=== PATIENT | female | born 1995 | race American Indian/Alaskan Native ===

== ENCOUNTER 2016-03-19 21:58 | Emergency (ER) | payer SELFPAY ==
[2016-03-19 22:05] VITALS: BP 124/78
== END 2016-03-19 22:03 | disposition left against medical advice (07) ==
LOC: ED 21:58
DX: R06.09 Other forms of dyspnea (principal); Z53.21 Procedure and treatment not carried out due to patient leaving prior to being seen by health care provider

== ENCOUNTER 2016-06-27 00:16 | Emergency (ER) | payer SELFPAY ==
--- NOTE | 2016-06-27 08:15 | Emergency Department Report ---
HPI - General Chief Complaint: Sore Throat Time Seen by Provider: 06/27/16 08:14 - HPI HPI: Patient was called back after she left without being seen this morning. She was triage and strep was done and strep test came back positive. No scleral patient back for treatment. She reported that her throat started hurting yesterday and she is having pain at 5 out of 10 with swallowing at present. She says she's having chills but denies any fever. She said it's difficult for her to swallow due to pain and denies any drooling. Denies any nausea or vomiting. Denies any cough, congestion or shortness of breath. Denies any chest pain. ED Past Medical Hx - Past Medical History Previous Medical History?: Yes Hx Hypertension: No Hx Liver Disease: No Hx Renal Disease: No Hx Headaches / Migraines: Yes (migraines) Hx Seizures: No Hx Asthma: Yes (last treated 04/2014, SE[facility]ON[facility]) Hx HIV: No - Surgical History Past Surgical History?: Yes Additional Surgical History: RIGHT OOPHERECTOMY - Family History Family history: hypertension - Social History Smoking Status: Current Every Day Smoker Substance Use Type: None - Medications Home Medications: Home Medications Medication Instructions Recorded Confirmed Last Taken Type Clindamycin [Clindamycin CAP] 300 mg PO Q8H #30 cap 06/27/16 Unknown Rx Ibuprofen [Motrin] 600 mg PO Q8H PRN #15 tablet 06/27/16 Unknown Rx ED Review of Systems ROS: Stated complaint: SORE THROAT Other details as noted in HPI Comment: All other systems reviewed and negative Constitutional: chills. denies: fever Eyes: denies: eye pain ENT: throat pain. denies: ear pain, congestion Respiratory: no symptoms reported Cardiovascular: denies: chest pain, palpitations, edema, syncope Gastrointestinal: denies: abdominal pain, nausea, vomiting Musculoskeletal: denies: back pain, arthralgia Skin: denies: rash Neurological: denies: headache, weakness, numbness, paresthesias, confusion, abnormal gait, vertigo Physical Exam - Physical Exam Vital Signs: Vital Signs 06/27/16 00:23 Temperature 98.3 F Pulse Rate 80 Respiratory 18 Rate Blood Pressure 115/68 O2 Sat by Pulse 100 Oximetry General: This is a 20-year-old female well-nourished well-developed in no acute distress. Physical Exam: Head: Normocephalic atraumatic Mouth: Moist, positive pharyngeal exudate / erythema. Uvula is midline and oral airway is patent. No gingival enlargement or dental tenderness. No facial swelling. No peritonsillar abscesses. no drooling Neck: Supple, no C-spine tenderness, no tracheal deviation. Nontender to palpate. Positive adenopathy Ears: Bilateral TMs Pearly brady .bilateral EAC without any redness swelling or drainage Eyes: Bilateral pupils equal and reactive to light, bilateral EOM intact. Bilateral sclera and conjunctiva without injection. Normal accommodation Nose: Mucosa moist, NL maxillary and frontal sinus non-tender to palpate. Lungs: Clear to auscultate bilaterally no rhonchi wheezes or rales. Normal work of breathing extremity; No CCE. +2 pulses. No neurovascular compromise Cardiovascular: S1-S2, regular rate rhythm. No murmurs. Skin: clean Dry and intact no rash no lesions Psych: Normal mood and behavior ED Course Vital Signs 06/27/16 00:23 Temperature 98.3 F Pulse Rate 80 Respiratory 18 Rate Blood Pressure 115/68 O2 Sat by Pulse 100 Oximetry Vital Signs 06/27/16 06/27/16 00:23 08:20 Temperature 98.3 F 98.5 F Pulse Rate 80 98 H Respiratory 18 18 Rate Blood Pressure 115/68 Blood Pressure 109/70 [Left] O2 Sat by Pulse 100 99 Oximetry - Reevaluation(s) Reevaluation #1: 06/27/16 08:21 Patient return back for treatment she cannot get Bicillin because she is allergic to penicillin. She is stable. ED Medical Decision Making - Lab Data Strep test positive. - Medical Decision Making ED course: Discussed with patient that her strep test positive. Vital signs are stable. The left at 3:50 AM this morning after being triage and was called back in because her strep test is positive. I asked the patient diagnosis and treatment plan and she is in agreement. Condition discharged home with prescription for clindamycin and Motrin. Critical care attestation.: If time is entered above; I have spent that time in minutes in the direct care of this critically ill patient, excluding procedure time. ED Disposition Clinical Impression: Strep throat Pharyngitis Qualifiers: Pharyngitis/tonsillitis etiology: streptococcus Qualified Code(s): J02.0 - Streptococcal pharyngitis Disposition: DISCHARGED TO HOME OR SELFCARE Is pt being admited?: No Does the pt Need Aspirin: No Condition: Stable Instructions: Strep Throat (ED) Additional Instructions: please plenty of fluid. Take antibiotic as prescribed Prescriptions: Clindamycin [Clindamycin CAP] 300 mg PO Q8H #30 cap Ibuprofen [Motrin] 600 mg PO Q8H PRN #15 tablet PRN Reason: Pain Referrals: PRIMARY CARE, [Primary Care Provider] - 2-3 Days [facility] [Outside] - 3-5 Days Forms: Work/School Release Form(ED)
[2016-06-27 08:22] VITALS: BP 109/70
== END 2016-06-27 08:31 | disposition home or self-care (01) ==
LOC: ED 00:16
DX: J02.0 Streptococcal pharyngitis (principal); G40.909 Epilepsy, unspecified, not intractable, without status epilepticus; J45.909 Unspecified asthma, uncomplicated; F17.200 Nicotine dependence, unspecified, uncomplicated; Z90.721 Acquired absence of ovaries, unilateral
CPT/HCPCS: 87430; 99282

== ENCOUNTER 2016-10-02 00:11 | Emergency (ER) | payer SELFPAY | END 2016-10-02 01:39 | disposition left against medical advice (07) | LOC: ED 00:11 | DX: M79.646 Pain in unspecified finger(s) (principal); Z53.21 Procedure and treatment not carried out due to patient leaving prior to being seen by health care provider ==

== ENCOUNTER 2016-10-02 23:20 | Emergency (ER) | payer SELFPAY ==
[2016-10-03 00:52] VITALS: BP 114/72
--- NOTE | 2016-10-03 03:28 | Emergency Department Report ---
Upper Extremity - HPI Chief Complaint: Extremity Injury, Upper Stated Complaint: GROWTH ON RIGHT HAND PINKY/PAINFUL Time Seen by Provider: 10/03/16 02:58 Upper Extremity: Right Little Finger (wart with surrounding paronychia right distal pinky finger near nail edge) Symptoms: Yes Deformity (visible wart like lesion to distal pinky finger on right hand on superior aspect of nail edge), Yes Swelling (paronychia next 2 nail), No Pain with Movement, No Limited Range of Movement, No Numbness, No Weakness, No Bruising/Ecchymosis, No Laceration or Abrasion Other History: 20-year-old female past medical history hand warts presents with complaint of 2-3 days of pain to distal right pinky. Patient states she has noticed some swelling adjacent to a wart she had on this pinky. tender to touch and visible swelling to area immediately adjacent to the nail edge. States she saw some mild purulent drainage ED Review of Systems ROS: Stated complaint: GROWTH ON RIGHT HAND PINKY/PAINFUL Other details as noted in HPI Constitutional: denies: chills, fever Eyes: denies: eye pain, eye discharge, vision change ENT: denies: ear pain, throat pain Respiratory: denies: cough, shortness of breath, wheezing Cardiovascular: denies: chest pain, palpitations Endocrine: no symptoms reported Gastrointestinal: denies: abdominal pain, nausea, diarrhea Genitourinary: denies: urgency, dysuria, discharge Musculoskeletal: denies: back pain, joint swelling, arthralgia Skin: as per HPI (wart on fingers). denies: rash, lesions Neurological: denies: headache, weakness, paresthesias Psychiatric: denies: anxiety, depression Hematological/Lymphatic: denies: easy bleeding, easy bruising ED Past Medical Hx - Past Medical History Previous Medical History?: Yes Hx Hypertension: No Hx Liver Disease: No Hx Renal Disease: No Hx Headaches / Migraines: Yes (migraines) Hx Seizures: No Hx Asthma: Yes (last treated 04/2014, SE[facility]ON[facility]) Hx HIV: No - Surgical History Past Surgical History?: Yes Additional Surgical History: RIGHT OOPHERECTOMY - Social History Smoking Status: Current Every Day Smoker Substance Use Type: None - Medications Home Medications: Home Medications Medication Instructions Recorded Confirmed Last Taken Type Clindamycin [Clindamycin CAP] 300 mg PO Q8H #30 cap 06/27/16 Unknown Rx Ibuprofen [Motrin] 600 mg PO Q8H PRN #15 tablet 06/27/16 Unknown Rx Ibuprofen [Motrin] 800 mg PO Q8HR PRN #25 tablet 10/03/16 Unknown Rx Neomycn/Baci Zn/Pmyx Bs/Pramox 28 gm TP BID #1 oint...g. 10/03/16 Unknown Rx [Triple Antibioti-Pain Rlf Oint] Sulfamethoxazole/Trimethoprim 1 each PO BID #14 tablet 10/03/16 Unknown Rx [Bactrim DS TAB] Upper Extremity Exam - Exam General: Vital signs noted. No distress. Alert and acting appropriately. Head and Torso: No HEENT Abnormality, No Neck Tenderness, No Chest/Lungs Abnormality, No Abdominal Tenderness, No Back Tenderness Shoulder Exam: Yes Normal Range of Motion in Shoulder, No Shoulder Tenderness, No Clavicle Tenderness, No Shoulder Deformity, No AC Joint Tenderness Arm Exam: No Arm/Humerus Tenderness, No Arm Deformity Elbow: No Elbow Tenderness, No Normal Range of Motion in Elbow, No Elbow Deformity Forearm: No Forearm Tenderness, No Forearm Deformity, No Pain with Pronation, No Pain with Supination Wrist: Yes Normal ROM in Wrist, No Wrist Tenderness, No Wrist Deformity, No Snuffbox Tenderness, No Pain with Axial Thumb Compression Hand: Yes Digit Tenderness (tenderness to paronychia area right distal pinky), Yes Normal ROM in Digit(s), No Hand Tenderness, No Hand Deformity, No Digit(s) Deformity, No Tendon Dysfunction CMS Exam: Yes Normal Distal Pulses (distal pulses intact), Yes Normal Capillary Refill (distal sensation and distal capillary refill intact), No Broken Skin, No Normal Distal Sensation Hand L/R Back: 1 - Wart with surrounding paronychia here ED Course Vital Signs 10/02/16 23:30 Temperature 98.9 F Pulse Rate 88 Respiratory 18 Rate Blood Pressure 114/72 [Right] O2 Sat by Pulse 99 Oximetry - I & D Right Distal Finger Type of Procedure: Simple Site: right distal pinky finger nail edge Blade Size: 11 I & D Procedure: betadine prep Progress: Single stab incision made, tiny amount of purulent drainage, procedure tolerated well wrapped with gauze after ED Medical Decision Making - Medical Decision Making A/P: Paronychia right distal pinky finger 1-incised, small amount of purulent drainage. Patient should follow-up with leather worker to have wart excised 2-we'll give patient a short course of Bactrim. Motrin 800 when necessary 3-patient referred to dermatology. Critical care attestation.: If time is entered above; I have spent that time in minutes in the direct care of this critically ill patient, excluding procedure time. ED Disposition Clinical Impression: Paronychia Qualifiers: Laterality: right Qualified Code(s): L03.011 - Cellulitis of right finger Disposition: TO HOME OR SELFCARE Is pt being admited?: No Does the pt Need Aspirin: No Condition: Stable Instructions: Paronychia (ED) Prescriptions: Ibuprofen [Motrin] 800 mg PO Q8HR PRN #25 tablet PRN Reason: Pain Neomycn/Baci Zn/Pmyx Bs/Pramox [Triple Antibioti-Pain Rlf Oint] 28 gm TP BID #1 oint...g. Sulfamethoxazole/Trimethoprim [Bactrim DS TAB] 1 each PO BID #14 tablet Referrals: [facility] [Provider Group] - 3-5 Days Forms: Accompanied Note, Work/School Release Form(ED) Time of Disposition: 04:33
[2016-10-03] MEDS ORDERED: MOTRIN PO ONE (04:14)
== END 2016-10-03 04:20 | disposition home or self-care (01) ==
LOC: ED 23:20
DX: L03.011 Cellulitis of right finger (principal); G43.909 Migraine, unspecified, not intractable, without status migrainosus; J45.909 Unspecified asthma, uncomplicated; F17.200 Nicotine dependence, unspecified, uncomplicated; Z88.0 Allergy status to penicillin; Z88.1 Allergy status to other antibiotic agents

== ENCOUNTER 2016-10-22 22:52 | Emergency (ER) | payer OTHER ==
[2016-10-22 23:32] VITALS: BP 102/67
== END 2016-10-23 06:06 | disposition left against medical advice (07) ==
LOC: ED 22:52
DX: M79.601 Pain in right arm (principal); J45.909 Unspecified asthma, uncomplicated; G43.909 Migraine, unspecified, not intractable, without status migrainosus; Z88.0 Allergy status to penicillin; Z88.1 Allergy status to other antibiotic agents; W22.8XXA Striking against or struck by other objects, initial encounter; Y93.89 Activity, other specified; Y99.9 Unspecified external cause status; Y92.89 Other specified places as the place of occurrence of the external cause; Z53.21 Procedure and treatment not carried out due to patient leaving prior to being seen by health care provider

== ENCOUNTER 2017-06-11 18:02 | Emergency (ER) | payer SELFPAY ==
[2017-06-11] MEDS ORDERED: ZOFRAN ODT PO ONE (19:48)
[2017-06-11] MEDS ORDERED: PEPCID PO ONE (19:49)
--- NOTE | 2017-06-11 19:52 | Emergency Department Report ---
ED N/V/D HPI - General Chief complaint: Nausea/Vomiting/Diarrhea Stated complaint: FLU LIKE SYMPTOMS Time Seen by Provider: 06/11/17 19:38 Source: patient Mode of arrival: Ambulatory Limitations: No Limitations - History of Present Illness Initial comments: 20-year-old -[place] female comes in for complaint of nausea vomiting diarrhea onset last night. Patient reports approximate 4 AM she started having abdominal pain since vomited about 4 times last time was about 1 PM today. She' s had multiple episodes of diarrhea. She reports that she has shortness of breathing and chest pain and feels fullness at the top of her stomach. Patient reports she has been able to eat ice chips with no issues at this time. Patient is 1 para 1. Last menstrual cycle was 06/03/2017. Past medical history of asthma as well as a right ovary removed due to history of ovarian cysts. Patient has allergy to penicillins. Currently taking no medications. MD complaint: nausea, vomiting -: Last night Description of Vomiting: watery Description of Diarrhea: water Associated Abdominal Pain: Yes Location: epigastric Radiation: none Severity: moderate Quality: aching Consistency: intermittent Improves with: rest Worsens with: eating Associated Symptoms: nausea/vomiting. denies: cough, fever/chills, dysuria - Related Data Previous Rx's Medication Instructions Recorded Last Taken Type Clindamycin [Clindamycin CAP] 300 mg PO Q8H #30 cap 06/27/16 Unknown Rx Ibuprofen [Motrin] 600 mg PO Q8H PRN #15 tablet 06/27/16 Unknown Rx Ibuprofen [Motrin] 800 mg PO Q8HR PRN #25 tablet 10/03/16 Unknown Rx Neomycn/Bacitrc/Polymyx/Pramox 28 gm TP BID #1 oint...g. 10/03/16 Unknown Rx [Triple Antibioti-Pain Rlf Oint] Sulfamethoxazole/Trimethoprim 1 each PO BID #14 tablet 10/03/16 Unknown Rx [Bactrim DS TAB] Allergies Allergy/AdvReac Type Severity Reaction Status Date / Time amoxicillin [Amoxicillin] Allergy Itching Verified 06/11/17 19:25 Penicillins Allergy Unknown Verified 06/11/17 19:25 ED Review of Systems ROS: Stated complaint: FLU LIKE SYMPTOMS Other details as noted in HPI Constitutional: denies: chills, fever Eyes: denies: eye pain, eye discharge, vision change ENT: denies: ear pain, throat pain Respiratory: shortness of breath Cardiovascular: chest pain Endocrine: no symptoms reported Gastrointestinal: abdominal pain, nausea, vomiting, diarrhea Genitourinary: denies: urgency, dysuria, discharge Musculoskeletal: denies: back pain, joint swelling, arthralgia Skin: denies: rash, lesions Neurological: denies: headache, weakness, paresthesias Psychiatric: denies: anxiety, depression Hematological/Lymphatic: denies: easy bleeding, easy bruising ED Past Medical Hx - Past Medical History Hx Hypertension: No Hx Liver Disease: No Hx Renal Disease: No Hx Headaches / Migraines: Yes (migraines) Hx Seizures: No Hx Asthma: Yes (last treated 04/2014, [facility]ON[facility]) Hx HIV: No - Surgical History Additional Surgical History: RIGHT OOPHERECTOMY - Social History Smoking Status: Never Smoker Substance Use Type: None - Medications Home Medications: Home Medications Medication Instructions Recorded Confirmed Last Taken Type Clindamycin [Clindamycin CAP] 300 mg PO Q8H #30 cap 06/27/16 Unknown Rx Ibuprofen [Motrin] 600 mg PO Q8H PRN #15 tablet 06/27/16 Unknown Rx Ibuprofen [Motrin] 800 mg PO Q8HR PRN #25 tablet 10/03/16 Unknown Rx Neomycn/Bacitrc/Polymyx/Pramox 28 gm TP BID #1 oint...g. 10/03/16 Unknown Rx [Triple Antibioti-Pain Rlf Oint] Sulfamethoxazole/Trimethoprim 1 each PO BID #14 tablet 10/03/16 Unknown Rx [Bactrim DS TAB] ED Physical Exam - General Limitations: No Limitations General appearance: alert, in no apparent distress - Head Head exam: Present: atraumatic, normocephalic - Eye Eye exam: Present: normal appearance - ENT ENT exam: Present: mucous membranes moist - Neck Neck exam: Present: normal inspection - Respiratory Respiratory exam: Present: normal lung sounds bilaterally - Cardiovascular Cardiovascular Exam: Present: regular rate - GI/Abdominal GI/Abdominal exam: Present: soft, distended (epigastric), tenderness (mild), normal bowel sounds. Absent: guarding, rebound, rigid - Extremities Exam Extremities exam: Present: normal inspection, full ROM - Back Exam Back exam: Present: normal inspection - Neurological Exam Neurological exam: Present: alert, oriented X3 - Psychiatric Psychiatric exam: Present: normal affect, normal mood - Skin Skin exam: Present: warm, dry, intact, normal color. Absent: rash ED Course Vital Signs 06/11/17 19:25 Temperature 99 F Pulse Rate 79 Respiratory 16 Rate Blood Pressure 109/69 O2 Sat by Pulse 100 Oximetry ED Medical Decision Making - Medical Decision Making Patient has been evaluated by this provider fast track. Patient was given Zofran and Pepcid. She then had 1 episode of diarrhea since being here she has had no more episodes of vomiting. Discussed patient she is stable to discharge home diagnosed with gastroenteritis. She needs to follow up with her primary care provider if symptoms persist or gets worse. Critical care attestation.: If time is entered above; I have spent that time in minutes in the direct care of this critically ill patient, excluding procedure time. ED Disposition Clinical Impression: Gastroenteritis Disposition: DC-01 TO HOME OR SELFCARE Is pt being admited?: No Does the pt Need Aspirin: No Condition: Stable Instructions: Gastroenteritis (ED) Additional Instructions: Please continue drinking and advance her diet as tolerated. Please follow up with primary care provider if symptoms persist or gets worse. Forms: Work/School Release Form(ED), Accompanied Note
[2017-06-11 21:48] LABS: Bacteria,Urine 1+ /HPF (Negative); Bilirubin,Urine NEG (Negative); Blood,Urine MOD (Negative); Color,Urine Yellow (Yellow); Mucus,Urine FEW /HPF; Protein,Urine <15 mg/dL mg/dL (Negative); Urobilinogen,Urine < 2.0 mg/dL (<2.0)
[2017-06-11 22:18] VITALS: BP 109/65
== END 2017-06-11 22:21 | disposition home or self-care (01) ==
LOC: ED 18:02
DX: K52.9 Noninfective gastroenteritis and colitis, unspecified (principal); Z88.0 Allergy status to penicillin; Z88.1 Allergy status to other antibiotic agents
CPT/HCPCS: 36415; 81001; 84702; 99283; Q0162

== ENCOUNTER 2018-04-06 07:53 | Emergency (ER) | payer SELFPAY ==
[2018-04-06 08:25] LABS: Hematocrit 40.1 % (30.3-42.9); Hemoglobin 13.2 gm/dl (10.1-14.3); Mean Corpuscular HGB Conc 33 % (30-34); Mean Corpuscular Volume 88 fl (79-97); Platelet Count 273 K/mm3 (140-440); Red Blood Count 4.57 M/mm3 (3.65-5.03); Red Cell Distribution Width 13.4 % (13.2-15.2)
[2018-04-06 09:13] VITALS: BP 109/76
--- NOTE | 2018-04-06 09:21 | Emergency Department Report ---
ED Female HPI - General Chief complaint: Vaginal Bleeding Stated complaint: 4WK PREG/CRAMPING/SPOTTING Time Seen by Provider: 04/06/18 08:13 Source: patient Mode of arrival: Ambulatory Limitations: No Limitations - History of Present Illness Initial comments: This is a 22-year-old female nontoxic, well nourished in appearance, no acute signs of distress presents to the ED with c/o of vaginal bleeding and pelvic pain x1 day. Patient stated yesterday she noticed some spotting this morning x3 occasions and primarily only when she wipes after the restroom. Patient stated that she believes she may be 4 weeks but had negative test. Patient denies any abdominal pain. Patient denies any vaginal discharge or foul odor. Patient denies any nausea, vomiting, chest pain, shortness of breathe, fever, chills, headache, stiff neck, numbness, tingling. Patient denies any urinary symptoms. Patient stated allergies to PCN. MD Complaint: vaginal bleeding, pelvic pain -: days(s) (1) Radiation: non-radiating Severity: mild Severity scale (0 -10): 3 Quality: cramping Consistency: intermittent Improves with: none Worsens with: none Are you Now?: No Associated Symptoms: vaginal bleeding. denies: vaginal discharge, abdominal pain, nausea/vomiting, fever/chills, headaches, loss of appetite, dysuria, hematuria, rash, seizure, shortness of breath, syncope, weakness - Related Data Previous Rx's Medication Instructions Recorded Last Taken Type Clindamycin [Clindamycin CAP] 300 mg PO Q8H #30 cap 06/27/16 Unknown Rx Ibuprofen [Motrin] 600 mg PO Q8H PRN #15 tablet 06/27/16 Unknown Rx Ibuprofen [Motrin] 800 mg PO Q8HR PRN #25 tablet 10/03/16 Unknown Rx Neomycn/Bacitrc/Polymyx/Pramox 28 gm TP BID #1 oint...g. 10/03/16 Unknown Rx [Triple Antibioti-Pain Rlf Oint] Clindamycin [Clindamycin CAP] 300 mg PO Q8H 7 Days cap 11/22/17 Unknown Rx Ibuprofen [Motrin] 800 mg PO Q8HR PRN #20 tablet 11/22/17 Unknown Rx traMADol [Ultram] 50 mg PO Q6HR PRN #10 tablet 11/22/17 Unknown Rx Famotidine [Pepcid] 20 mg PO DAILY #10 tablet 12/30/17 Unknown Rx Ondansetron [Zofran ODT TAB] 8 mg PO Q12HR #20 tab.rapdis 12/30/17 Unknown Rx Sulfamethoxazole/Trimethoprim 1 each PO BID #10 tablet 12/30/17 Unknown Rx [Bactrim DS TAB] Ibuprofen [Motrin] 600 mg PO Q8H PRN #20 tablet 04/06/18 Unknown Rx Allergies Allergy/AdvReac Type Severity Reaction Status Date / Time amoxicillin [Amoxicillin] Allergy Itching Verified 06/11/17 19:25 Penicillins Allergy Unknown Verified 06/11/17 19:25 ED Review of Systems ROS: Stated complaint: 4WK PREG/CRAMPING/SPOTTING Other details as noted in HPI Constitutional: denies: chills, fever Eyes: denies: eye pain, eye discharge, vision change ENT: denies: ear pain, throat pain Respiratory: denies: cough, shortness of breath, wheezing Cardiovascular: denies: chest pain, palpitations Endocrine: no symptoms reported Gastrointestinal: other (pelvic pain). denies: abdominal pain, nausea, diarrhea Genitourinary: abnormal menses. denies: urgency, dysuria, hematuria, discharge Musculoskeletal: denies: back pain, joint swelling, arthralgia Skin: denies: rash, lesions Neurological: denies: headache, weakness, paresthesias Psychiatric: denies: anxiety, depression Hematological/Lymphatic: denies: easy bleeding, easy bruising ED Past Medical Hx - Past Medical History Hx Hypertension: No Hx Liver Disease: No Hx Renal Disease: No Hx Headaches / Migraines: Yes (migraines) Hx Seizures: No Hx Asthma: Yes (last treated 04/2014, SE[facility]ON[facility]) Hx HIV: No - Surgical History Past Surgical History?: Yes Additional Surgical History: RIGHT OOPHERECTOMY/ECTOPIC PREG 2013 - Social History Smoking Status: Current Every Day Smoker Substance Use Type: Marijuana - Medications Home Medications: Home Medications Medication Instructions Recorded Confirmed Last Taken Type Clindamycin [Clindamycin CAP] 300 mg PO Q8H #30 cap 06/27/16 Unknown Rx Ibuprofen [Motrin] 600 mg PO Q8H PRN #15 tablet 06/27/16 Unknown Rx Ibuprofen [Motrin] 800 mg PO Q8HR PRN #25 tablet 10/03/16 Unknown Rx Neomycn/Bacitrc/Polymyx/Pramox 28 gm TP BID #1 oint...g. 10/03/16 Unknown Rx [Triple Antibioti-Pain Rlf Oint] Clindamycin [Clindamycin CAP] 300 mg PO Q8H 7 Days cap 11/22/17 Unknown Rx Ibuprofen [Motrin] 800 mg PO Q8HR PRN #20 tablet 11/22/17 Unknown Rx traMADol [Ultram] 50 mg PO Q6HR PRN #10 tablet 11/22/17 Unknown Rx Famotidine [Pepcid] 20 mg PO DAILY #10 tablet 12/30/17 Unknown Rx Ondansetron [Zofran ODT TAB] 8 mg PO Q12HR #20 tab.rapdis 12/30/17 Unknown Rx Sulfamethoxazole/Trimethoprim 1 each PO BID #10 tablet 12/30/17 Unknown Rx [Bactrim DS TAB] Ibuprofen [Motrin] 600 mg PO Q8H PRN #20 tablet 04/06/18 Unknown Rx ED Physical Exam - General Limitations: No Limitations General appearance: alert, in no apparent distress - Head Head exam: Present: atraumatic, normocephalic - Eye Eye exam: Present: normal appearance - Neck Neck exam: Present: normal inspection, full ROM - GI/Abdominal GI/Abdominal exam: Present: soft, normal bowel sounds. Absent: distended, tenderness, guarding, rebound, rigid, diminished bowel sounds, hyperactive bowel sounds, hypoactive bowel sounds, mass, bruit, pulsatile mass - Expanded GI/Abdominal Exam Expanded GI/Abdominal exam: Absent: psoas sign, Villa's sign, Rovsing's sign, tenderness at Mcburney's Point, ascites - Extremities Exam Extremities exam: Present: normal inspection, full ROM - Back Exam Back exam: Present: normal inspection, full ROM. Absent: tenderness, CVA tenderness (R), CVA tenderness (L), muscle spasm, paraspinal tenderness, vertebral tenderness, rash noted - Neurological Exam Neurological exam: Present: alert, oriented X3 - Psychiatric Psychiatric exam: Present: normal affect, normal mood - Skin Skin exam: Present: warm, dry, intact, normal color. Absent: rash ED Course Vital Signs 04/06/18 04/06/1804/06/19 07:58 09:06 09:11 Temperature 98.3 F 98.8 F Pulse Rate 60 58 L Respiratory 18 18 18 Rate Blood Pressure 117/75 Blood Pressure 109/76 [Right] O2 Sat by Pulse 99 Oximetry - Reevaluation(s) Reevaluation #1: 04/06/18 09:23 Patient is speaking in full sentences with no signs of distress noted. ED Medical Decision Making - Lab Data Result diagrams: 04/06/18 08:04 - Medical Decision Making This is a 22-year-old female presents with dysmenorrhea. Patient is stable and was examined by me. Normal abdominal exam. US pelvic/transvaginal obtained and dictated by the radiologist. Quantative serum test obtained and negative for . Patient notified of the US report with no questions noted by the patient. Labs within normal limits. Patient was instructed to follow-up with a primary care/[employer] [facility] doctor in 3-5 days or if symptoms worsen and continue return to emergency room as soon as possible. At time of discharge, the patient does not seem toxic or ill in appearance. No acute signs of distress noted. Patient agrees to discharge treatment plan of care. No further questions noted by the patient. Critical care attestation.: If time is entered above; I have spent that time in minutes in the direct care of this critically ill patient, excluding procedure time. ED Disposition Clinical Impression: Dysmenorrhea Disposition: DC-01 TO HOME OR SELFCARE Is pt being admited?: No Does the pt Need Aspirin: No Condition: Stable Instructions: Dysmenorrhea (ED) Additional Instructions: follow-up with a primary care/[employer] [facility] doctor in 3-5 days or if symptoms worsen and continue return to emergency room as soon as possible. Prescriptions: Ibuprofen [Motrin] 600 mg PO Q8H PRN #20 tablet PRN Reason: Pain Referrals: PRIMARY CARE, [Referring] - 3-5 Days LUIS ALEJANDRO MD [Staff Physician] - 3-5 Days [facility] [Outside] - 3-5 Days MARKOS TRAYLOR MD [Staff Physician] - 3-5 Days Forms: Work/School Release Form(ED)
[2018-04-06 10:05] LABS: Bilirubin,Urine NEG (Negative); Blood,Urine LG (Negative); Color,Urine Straw (Yellow); Protein,Urine <15 mg/dL mg/dL (Negative); Urobilinogen,Urine < 2.0 mg/dL (<2.0)
--- NOTE | 2018-04-06 11:29 | Ultrasound Report ---
FINAL REPORT EXAM: US PELVIC COMPLETE HISTORY: vaginal bleeding COMPARISON: None. TECHNIQUE: Transabdominal imaging of the pelvis was performed. FINDINGS: The uterus measures 9 x 4.6 x 5.2 centimeters and is normal in morphology. There is normal echogenici ty of the uterine myometrium. There are several nabothian cysts measuring up to 6 millimeters in the cervix. The endometrium measures 3.7 millimeters in thickness. The right ovary is not visualized. The left ovary measures 4.4 x 2 x 2.3 centimeters and is normal in morphology. There is normal arteri al and venous flow to the left ovary. There is a minimal amount of free fluid in the pelvis. IMPRESSION: Right ovary is not visualized. Otherwise normal pelvic ultrasound.
== END 2018-04-06 11:53 | disposition home or self-care (01) ==
LOC: ED 07:53
DX: N94.6 Dysmenorrhea, unspecified (principal); J45.909 Unspecified asthma, uncomplicated; F17.200 Nicotine dependence, unspecified, uncomplicated; F12.10 Cannabis abuse, uncomplicated
CPT/HCPCS: 36415; 76830; 76856; 81001; 84702; 85027; 86900; 86901

== ENCOUNTER 2018-06-25 21:26 | Emergency (ER) | payer OTHER ==
[2018-06-25 22:18] VITALS: BP 138/60
[2018-06-25] MEDS ORDERED: PROVENTIL IH ONE (22:20)
[2018-06-26] MEDS ORDERED: DELTASONE PO ONE (00:36)
[2018-06-26] MEDS ORDERED: DELTASONE ONE (00:36)
[2018-06-26] MEDS ORDERED: DUONEB *Not for PRN Use IH ONE (01:40)
--- NOTE | 2018-06-26 02:06 | Emergency Department Report ---
ED Asthma HPI - General Chief Complaint: Adult Asthma Stated Complaint: WHEEZING Time Seen by Provider: 06/26/18 01:38 Source: patient Mode of arrival: Ambulatory Limitations: No Limitations - History of Present Illness Initial Comments: 22-year-old -[place] female this emergency department complaining of asthma flareup that started earlier today as she ran out of her inhaler. She reports wheezing and nontender with cough reports no fever, chills, sweats, hemoptysis, hematemesis, hematochezia, nausea, vomiting, chest pain, palpitations, presyncope, blurry vision, or ear pain. MD Complaint: "asthma attack" Severity: moderate Context: none known Associated Symptoms: none. denies: fever, chest pain, hemoptysis, leg edema, syncope - Related Data Previous Rx's Medication Instructions Recorded Last Taken Type Clindamycin [Clindamycin CAP] 300 mg PO Q8H #30 cap 06/27/16 Unknown Rx Ibuprofen [Motrin] 600 mg PO Q8H PRN #15 tablet 06/27/16 Unknown Rx Ibuprofen [Motrin] 800 mg PO Q8HR PRN #25 tablet 10/03/16 Unknown Rx Neomycn/Bacitrc/Polymyx/Pramox 28 gm TP BID #1 oint...g. 10/03/16 Unknown Rx [Triple Antibioti-Pain Rlf Oint] Clindamycin [Clindamycin CAP] 300 mg PO Q8H 7 Days cap 11/22/17 Unknown Rx Ibuprofen [Motrin] 800 mg PO Q8HR PRN #20 tablet 11/22/17 Unknown Rx traMADol [Ultram] 50 mg PO Q6HR PRN #10 tablet 11/22/17 Unknown Rx Famotidine [Pepcid] 20 mg PO DAILY #10 tablet 12/30/17 Unknown Rx Ondansetron [Zofran ODT TAB] 8 mg PO Q12HR #20 tab.rapdis 12/30/17 Unknown Rx Sulfamethoxazole/Trimethoprim 1 each PO BID #10 tablet 12/30/17 Unknown Rx [Bactrim DS TAB] Ibuprofen [Motrin] 600 mg PO Q8H PRN #20 tablet 04/06/18 Unknown Rx ALBUTEROL Inhaler (OR & NICU) 1 puff IH Q4-6H PRN #1 inha 06/26/18 Unknown Rx [ProAir HFA Inhaler] ALBUTEROL NEB's [Proventil 0.083% 2.5 mg IH TID PRN #30 neb 06/26/18 Unknown Rx NEBS] Montelukast [Singulair] 10 mg PO QPM #14 tablet 06/26/18 Unknown Rx predniSONE [Deltasone] 50 mg PO QDAY #5 tab 06/26/18 Unknown Rx Allergies Allergy/AdvReac Type Severity Reaction Status Date / Time amoxicillin [Amoxicillin] Allergy Itching Verified 06/11/17 19:25 Penicillins Allergy Unknown Verified 06/11/17 19:25 ED Review of Systems ROS: Stated complaint: WHEEZING Other details as noted in HPI Constitutional: denies: chills, fever Eyes: denies: eye pain, eye discharge, vision change ENT: denies: ear pain, throat pain Respiratory: denies: cough, shortness of breath, wheezing Cardiovascular: denies: chest pain, palpitations Endocrine: no symptoms reported Gastrointestinal: denies: abdominal pain, nausea, diarrhea Genitourinary: denies: urgency, dysuria, discharge Musculoskeletal: denies: back pain, joint swelling, arthralgia Skin: denies: rash, lesions Neurological: denies: headache, weakness, paresthesias Psychiatric: denies: anxiety, depression Hematological/Lymphatic: denies: easy bleeding, easy bruising ED Past Medical Hx - Past Medical History Previous Medical History?: Yes Hx Hypertension: No Hx Liver Disease: No Hx Renal Disease: No Hx Headaches / Migraines: Yes (migraines) Hx Seizures: No Hx Asthma: Yes (last treated 04/2014, SEASONAL) Hx HIV: No - Surgical History Past Surgical History?: Yes Additional Surgical History: RIGHT OOPHERECTOMY/ECTOPIC PREG 2013 - Social History Smoking Status: Never Smoker Substance Use Type: None - Medications Home Medications: Home Medications Medication Instructions Recorded Confirmed Last Taken Type Clindamycin [Clindamycin CAP] 300 mg PO Q8H #30 cap 06/27/16 Unknown Rx Ibuprofen [Motrin] 600 mg PO Q8H PRN #15 tablet 06/27/16 Unknown Rx Ibuprofen [Motrin] 800 mg PO Q8HR PRN #25 tablet 10/03/16 Unknown Rx Neomycn/Bacitrc/Polymyx/Pramox 28 gm TP BID #1 oint...g. 10/03/16 Unknown Rx [Triple Antibioti-Pain Rlf Oint] Clindamycin [Clindamycin CAP] 300 mg PO Q8H 7 Days cap 11/22/17 Unknown Rx Ibuprofen [Motrin] 800 mg PO Q8HR PRN #20 tablet 11/22/17 Unknown Rx traMADol [Ultram] 50 mg PO Q6HR PRN #10 tablet 11/22/17 Unknown Rx Famotidine [Pepcid] 20 mg PO DAILY #10 tablet 12/30/17 Unknown Rx Ondansetron [Zofran ODT TAB] 8 mg PO Q12HR #20 tab.rapdis 12/30/17 Unknown Rx Sulfamethoxazole/Trimethoprim 1 each PO BID #10 tablet 12/30/17 Unknown Rx [Bactrim DS TAB] Ibuprofen [Motrin] 600 mg PO Q8H PRN #20 tablet 04/06/18 Unknown Rx ALBUTEROL Inhaler (OR & NICU) 1 puff IH Q4-6H PRN #1 inha 06/26/18 Unknown Rx [ProAir HFA Inhaler] ALBUTEROL NEB's [Proventil 0.083% 2.5 mg IH TID PRN #30 neb 06/26/18 Unknown Rx NEBS] Montelukast [Singulair] 10 mg PO QPM #14 tablet 06/26/18 Unknown Rx predniSONE [Deltasone] 50 mg PO QDAY #5 tab 06/26/18 Unknown Rx ED Physical Exam - General Limitations: No Limitations General appearance: alert, in no apparent distress - Head Head exam: Present: atraumatic, normocephalic, normal inspection - Eye Eye exam: Present: normal appearance, PERRL, EOMI. Absent: conjunctival injection, periorbital swelling Pupils: Present: normal accommodation - ENT ENT exam: Present: mucous membranes moist, TM's normal bilaterally - Neck Neck exam: Present: normal inspection, full ROM. Absent: tenderness - Respiratory Respiratory exam: Present: normal lung sounds bilaterally, wheezes. Absent: respiratory distress - Cardiovascular Cardiovascular Exam: Present: regular rate, normal rhythm. Absent: systolic murmur, diastolic murmur, rubs, gallop - GI/Abdominal GI/Abdominal exam: Present: soft, normal bowel sounds. Absent: distended, tenderness, hyperactive bowel sounds, organomegaly - Extremities Exam Extremities exam: Present: normal inspection, full ROM, normal capillary refill - Back Exam Back exam: Present: normal inspection - Neurological Exam Neurological exam: Present: alert, oriented X3 - Psychiatric Psychiatric exam: Present: normal affect, normal mood - Skin Skin exam: Present: warm, dry, intact, normal color. Absent: rash ED Course Vital Signs 06/25/18 22:14 Temperature 98.1 F Pulse Rate 91 H Respiratory 14 Rate Blood Pressure 138/60 O2 Sat by Pulse 98 Oximetry - Reevaluation(s) Reevaluation #1: 06/26/18 02:17 In full sentences, no acute distress. Good breath sounds throughout. I discussed the medications and treatment regimen. Also need to obtain primary care provider for routine follow-up and asthma management. Critical care attestation.: If time is entered above; I have spent that time in minutes in the direct care of this critically ill patient, excluding procedure time. ED Disposition Clinical Impression: Asthma Disposition: DC-01 TO HOME OR SELFCARE Is pt being admited?: No Does the pt Need Aspirin: No Condition: Stable Instructions: Asthma (ED) Referrals: CINDY LAMA MD [Primary Care Provider] - 3-5 Days
== END 2018-06-26 02:30 | disposition home or self-care (01) ==
LOC: ED 21:26
DX: J45.909 Unspecified asthma, uncomplicated (principal); G43.909 Migraine, unspecified, not intractable, without status migrainosus; Z90.79 Acquired absence of other genital organ(s); Z79.899 Other long term (current) drug therapy; Z88.1 Allergy status to other antibiotic agents; Z88.0 Allergy status to penicillin
CPT/HCPCS: 99283; J7512

== ENCOUNTER 2018-10-12 01:02 | Emergency (ER) | payer SELFPAY ==
[2018-10-12] MEDS ORDERED: PERCOCET 5/325 PO STA (01:37)
--- NOTE | 2018-10-12 01:43 | Emergency Department Report ---
Upper Extremity - HPI Chief Complaint: Extremity Injury, Upper Stated Complaint: L HAND PAIN Time Seen by Provider: 10/12/18 01:32 Upper Extremity: Left Wrist Occurred When: >5 Days Severity: mild Symptoms: Yes Pain with Movement, Yes Limited Range of Movement (due to the pain), No Deformity, No Numbness, No Weakness, No Swelling, No Laceration or Abrasion ED Review of Systems ROS: Stated complaint: L HAND PAIN Other details as noted in HPI Comment: All other systems reviewed and negative ED Past Medical Hx - Past Medical History Previous Medical History?: Yes Hx Hypertension: No Hx Liver Disease: No Hx Renal Disease: No Hx Headaches / Migraines: Yes (migraines) Hx Seizures: No Hx Asthma: Yes (last treated 04/2014, SEASONAL) Hx HIV: No - Surgical History Past Surgical History?: Yes Additional Surgical History: RIGHT OOPHERECTOMY/ECTOPIC PREG 2013 - Social History Smoking Status: Current Every Day Smoker - Medications Home Medications: Home Medications Medication Instructions Recorded Confirmed Last Taken Type Clindamycin [Clindamycin CAP] 300 mg PO Q8H #30 cap 06/27/16 Unknown Rx Ibuprofen [Motrin] 600 mg PO Q8H PRN #15 tablet 06/27/16 Unknown Rx Ibuprofen [Motrin] 800 mg PO Q8HR PRN #25 tablet 10/03/16 Unknown Rx Neomycn/Bacitrc/Polymyx/Pramox 28 gm TP BID #1 oint...g. 10/03/16 Unknown Rx [Triple Antibioti-Pain Rlf Oint] Clindamycin [Clindamycin CAP] 300 mg PO Q8H 7 Days cap 11/22/17 Unknown Rx Ibuprofen [Motrin] 800 mg PO Q8HR PRN #20 tablet 11/22/17 Unknown Rx traMADol [Ultram] 50 mg PO Q6HR PRN #10 tablet 11/22/17 Unknown Rx Famotidine [Pepcid] 20 mg PO DAILY #10 tablet 12/30/17 Unknown Rx Ondansetron [Zofran ODT TAB] 8 mg PO Q12HR #20 tab.rapdis 12/30/17 Unknown Rx Sulfamethoxazole/Trimethoprim 1 each PO BID #10 tablet 12/30/17 Unknown Rx [Bactrim DS TAB] Ibuprofen [Motrin] 600 mg PO Q8H PRN #20 tablet 04/06/18 Unknown Rx ALBUTEROL Inhaler (OR & NICU) 1 puff IH Q4-6H PRN #1 inha 06/26/18 Unknown Rx [ProAir HFA Inhaler] ALBUTEROL NEB's [Proventil 0.083% 2.5 mg IH TID PRN #30 neb 06/26/18 Unknown Rx NEBS] Montelukast [Singulair] 10 mg PO QPM #14 tablet 06/26/18 Unknown Rx predniSONE [Deltasone] 50 mg PO QDAY #5 tab 06/26/18 Unknown Rx Acetaminophen/Codeine [Tylenol #3] 1 tab PO Q6H PRN #15 tab 10/12/18 Unknown Rx Upper Extremity Exam - Exam General: Vital signs noted. No distress. Alert and acting appropriately. Head and Torso: No HEENT Abnormality, No Neck Tenderness, No Chest/Lungs Abnormality, No Abdominal Tenderness, No Back Tenderness Shoulder Exam: Yes Normal Range of Motion in Shoulder, No Shoulder Tenderness, No Clavicle Tenderness, No Shoulder Deformity, No AC Joint Tenderness Arm Exam: No Arm/Humerus Tenderness, No Arm Deformity Elbow: Yes Elbow Tenderness (to the medial epicondyle. Positive Tinel sign to the wrist and elbow. Pain with Phalen's tests), No Normal Range of Motion in Elbow, No Elbow Deformity Forearm: No Forearm Tenderness, No Forearm Deformity, No Pain with Pronation, No Pain with Supination Wrist: Yes Wrist Tenderness, Yes Normal ROM in Wrist, Yes Snuffbox Tenderness, No Wrist Deformity, No Pain with Axial Thumb Compression Hand: Yes Normal ROM in Digit(s), No Hand Tenderness, No Hand Deformity, No Digit Tenderness, No Digit(s) Deformity, No Tendon Dysfunction CMS Exam: Yes Normal Distal Pulses, Yes Normal Capillary Refill, Yes Normal Distal Sensation, No Broken Skin ED Course Vital Signs 10/12/18 01:17 Temperature 97.6 F Pulse Rate 99 H Respiratory 8 L Rate Blood Pressure 116/60 O2 Sat by Pulse 98 Oximetry ED Medical Decision Making - Radiology Data Radiology results: report reviewed 22-year-old female with wrist pain more carpal tunnel syndrome with a brace in place and with continued pain despite her visit last night. She's been taking some the medications provided above. Bumped her hand on the wall, which causes a reemergence of pain. X-rays are negative. Advised with follow-up with orthopedics for definitive management of her carpal tunnel Critical care attestation.: If time is entered above; I have spent that time in minutes in the direct care of this critically ill patient, excluding procedure time. ED Disposition Clinical Impression: Wrist pain, acute Disposition: DC-01 TO HOME OR SELFCARE Is pt being admited?: No Does the pt Need Aspirin: No Condition: Stable Instructions: Carpal Tunnel Syndrome (ED), Tendinitis (ED) Prescriptions: Acetaminophen/Codeine [Tylenol #3] 1 tab PO Q6H PRN #15 tab PRN Reason: Pain Referrals: WILLIAN PORTER MD [Staff Physician] - 3-5 Days
--- NOTE | 2018-10-12 02:28 | XRay Report ---
LEFT WRIST 4 VIEWS INDICATION / CLINICAL INFORMATION: lateral wrist pain. COMPARISON: None available. FINDINGS: Small cyst in the capitate. No other significant skeletal abnormality. Signer Name: Vinny Owens MD FACGabriel Signed: 10/12/2018 2:24 AM Workstation Name: [id number]
[2018-10-12 04:17] VITALS: BP 114/68
== END 2018-10-12 03:40 | disposition home or self-care (01) ==
LOC: ED 01:02
DX: M25.532 Pain in left wrist (principal); J45.909 Unspecified asthma, uncomplicated; G43.909 Migraine, unspecified, not intractable, without status migrainosus; F17.200 Nicotine dependence, unspecified, uncomplicated; Z90.79 Acquired absence of other genital organ(s); Z79.899 Other long term (current) drug therapy; Z88.0 Allergy status to penicillin; Z88.1 Allergy status to other antibiotic agents

== ENCOUNTER 2018-10-17 14:41 | Emergency (ER) | payer SELFPAY ==
--- NOTE | 2018-10-17 14:55 | Event Note ---
ED Screening Note Date of service: 10/17/18 Time: 14:54 ED Screening Note: This is a 22 y.o. F. that presents to the ER with nausea and symptoms of . Patient concerned of possible . LMP 09/20/18 This initial assessment/diagnostic orders/clinical plan/treatment(s) is/are sub ject to change based on patients health status, clinical progression and re- assessment by fellow clinical providers in the ED. Further treatment and workup at subsequent clinical providers discretion. Patient/guardian urged not to elope from the ED as their condition may be serious if not clinically assessed and managed. Initial orders include: Labs
[2018-10-17 14:56] VITALS: BP 108/53
--- NOTE | 2018-10-17 16:13 | Emergency Department Report ---
Chief Complaint: Urogenital-Female Stated Complaint: TEST Time Seen by Provider: 10/17/18 14:54 - HPI History of Present Illness: Patient is a 22-year-old who is here stating she wants a test. Patient was here yesterday for carpal tunnel syndrome and was requesting Percocet. Patient was given naproxen and follow-up. Patient is states she didn't get a test yesterday and would like one. Patient has not gone to local pharmacy to do a test at home because she says they do not work. Patient is initially did not mention abdominal pain however she states that she is having some abdominal discomfort after being told that we did not do routine test here in the emergency department. - ROS Review of Systems: All other systems are reviewed and are negative - Exam Vital Signs: Vital Signs 10/17/18 14:54 Temperature 98.8 F Pulse Rate 70 Respiratory 18 Rate Blood Pressure 108/53 O2 Sat by Pulse 99 Oximetry Physical Exam: Patient has a soft abdomen with no tenderness which is reproducible. Patient is in no acute distress. MSE screening note: Focused history and physical exam performed. Due to findings the following was ordered: ED Medical Decision Making - Medical Decision Making Patient has a nonemergent condition at this time she is not relating any vaginal discharge or vaginal bleeding and has no abdominal pain. Patient referred to assess at medical clinic or can take a Prevacid test [id number]. ED Disposition for MSE Clinical Impression: Well adult Disposition: Z-07 MED SCREENING EXAM-LEFT Is pt being admited?: No Does the pt Need Aspirin: No Condition: Stable Referrals: CINDY LAMA MD [Primary Care Provider] - 3-5 Days
== END 2018-10-17 16:33 | disposition left against medical advice (07) ==
LOC: ED 14:41
DX: R10.9 Unspecified abdominal pain (principal)
CPT/HCPCS: 99281

== ENCOUNTER 2019-08-06 19:27 | Emergency (ER) | payer OTHER ==
[2019-08-06 19:46] VITALS: BP 142/83
[2019-08-06] MEDS ORDERED: SODIUM CHLORIDE 0.9% 1000 ML 1,000 ML IV ONE (20:00)
[2019-08-06] MEDS ORDERED: KETOROLAC 30 MG/1 ML INJ IV ONE (20:00)
[2019-08-06] MEDS ORDERED: ONDANSETRON 4 MG/2 ML INJ IV ONE (20:00)
[2019-08-06 20:23] LABS: Basophils # (Auto) 0.2 K/mm3 (0.0-0.1); Eosinophils # (Auto) 0.1 K/mm3 (0.0-0.4); Hematocrit 36.8 % (30.3-42.9); Hemoglobin 12.6 gm/dl (10.1-14.3); Lymphocytes # (Auto) 1.6 K/mm3 (1.2-5.4); Lymphocytes % (Auto) 17.4 % (13.4-35.0); Mean Corpuscular HGB Conc 34 % (30-34); Mean Corpuscular Volume 88 fl (79-97); Monocytes # (Auto) 0.6 K/mm3 (0.0-0.8); Monocytes % (Auto) 6.4 % (0.0-7.3); Platelet Count 305 K/mm3 (140-440); Red Blood Count 4.17 M/mm3 (3.65-5.03); Red Cell Distribution Width 12.9 % (13.2-15.2)
--- NOTE | 2019-08-06 20:27 | Emergency Department Report ---
- General Chief complaint: Skin/Abscess/Foreign Body Stated complaint: INFECTION/BODY PAIN/DRAINAGE Time Seen by Provider: 08/06/19 19:59 Source: patient Mode of arrival: Ambulatory Limitations: No Limitations - History of Present Illness Initial comments: Ms. Bass is a 23-year-old -[place] female who presents with perirectal abscess to her left buttocks x3 days. Now with malaise fever pain states drainage is foul purulent and moderate. There is associated nausea that started today. Patient denies history of abscess of this type. Symptoms are exacerbated by activity and movement. Symptoms are relieved by nothing tried. MD complaint: abscess/boil Onset/Timin -: days(s) Tetanus Up to Date: yes Location: buttocks Severity: moderate Severity scale (0 -10): 5 Quality: aching Consistency: constant Improves with: none Worsens with: palpation, movement Context: none Associated symptoms: fever, chills, rigors, nausea, malaise Treatments Prior to Arrival: none - Related Data Previous Rx's Medication Instructions Recorded Last Taken Type Clindamycin [Clindamycin CAP] 300 mg PO Q8H #30 cap 06/27/16 Unknown Rx Ibuprofen [Motrin] 600 mg PO Q8H PRN #15 tablet 06/27/16 Unknown Rx Ibuprofen [Motrin] 800 mg PO Q8HR PRN #25 tablet 10/03/16 Unknown Rx Neomycn/Bacitrc/Polymyx/Pramox 28 gm TP BID #1 oint...g. 10/03/16 Unknown Rx [Triple Antibioti-Pain Rlf Oint] Clindamycin [Clindamycin CAP] 300 mg PO Q8H 7 Days cap 11/22/17 Unknown Rx Ibuprofen [Motrin] 800 mg PO Q8HR PRN #20 tablet 11/22/17 Unknown Rx traMADoL [Ultram] 50 mg PO Q6HR PRN #10 tablet 11/22/17 Unknown Rx Famotidine [Pepcid] 20 mg PO DAILY #10 tablet 12/30/17 Unknown Rx Ondansetron [Zofran ODT TAB] 8 mg PO Q12HR #20 tab.rapdis 12/30/17 Unknown Rx Sulfamethoxazole/Trimethoprim 1 each PO BID #10 tablet 12/30/17 Unknown Rx [Bactrim DS TAB] Ibuprofen [Motrin] 600 mg PO Q8H PRN #20 tablet 04/06/18 Unknown Rx ALBUTEROL NEB's [Proventil 0.083% 2.5 mg IH TID PRN #30 neb 06/26/18 Unknown Rx NEBS] Albuterol INH(or & Nicu Only) 1 puff IH Q4-6H PRN #1 inha 06/26/18 Unknown Rx [ProAir HFA Inhaler] Montelukast [Singulair] 10 mg PO QPM #14 tablet 06/26/18 Unknown Rx predniSONE [Deltasone] 50 mg PO QDAY #5 tab 06/26/18 Unknown Rx Acetaminophen/Codeine [Tylenol #3] 1 tab PO Q6H PRN #15 tab 10/12/18 Unknown Rx Menthol/Camphor [[place] 1 applicatio TP QID PRN #1 tube 10/16/18 Unknown Rx Ointment] Naproxen [Naprosyn] 500 mg PO BID PRN #30 tablet 10/16/18 Unknown Rx Clindamycin [Clindamycin CAP] 300 mg PO Q6H #9 capsule 08/07/19 Unknown Rx metroNIDAZOLE [Flagyl TAB] 500 mg PO Q8HR #30 tablet 08/07/19 Unknown Rx Allergies Allergy/AdvReac Type Severity Reaction Status Date / Time amoxicillin [Amoxicillin] Allergy Itching Verified 06/11/17 19:25 Penicillins Allergy Unknown Verified 06/11/17 19:25 Abscess Boil HPI - HPI Chief Complaint: Skin/Abscess/Foreign Body Stated Complaint: INFECTION/BODY PAIN/DRAINAGE Time Seen by Provider: 08/06/19 19:59 Home Medications: Previous Rx's Medication Instructions Recorded Last Taken Type Clindamycin [Clindamycin CAP] 300 mg PO Q8H #30 cap 06/27/16 Unknown Rx Ibuprofen [Motrin] 600 mg PO Q8H PRN #15 tablet 06/27/16 Unknown Rx Ibuprofen [Motrin] 800 mg PO Q8HR PRN #25 tablet 10/03/16 Unknown Rx Neomycn/Bacitrc/Polymyx/Pramox 28 gm TP BID #1 oint...g. 10/03/16 Unknown Rx [Triple Antibioti-Pain Rlf Oint] Clindamycin [Clindamycin CAP] 300 mg PO Q8H 7 Days cap 11/22/17 Unknown Rx Ibuprofen [Motrin] 800 mg PO Q8HR PRN #20 tablet 11/22/17 Unknown Rx traMADoL [Ultram] 50 mg PO Q6HR PRN #10 tablet 11/22/17 Unknown Rx Famotidine [Pepcid] 20 mg PO DAILY #10 tablet 12/30/17 Unknown Rx Ondansetron [Zofran ODT TAB] 8 mg PO Q12HR #20 tab.rapdis 12/30/17 Unknown Rx Sulfamethoxazole/Trimethoprim 1 each PO BID #10 tablet 12/30/17 Unknown Rx [Bactrim DS TAB] Ibuprofen [Motrin] 600 mg PO Q8H PRN #20 tablet 04/06/18 Unknown Rx ALBUTEROL NEB's [Proventil 0.083% 2.5 mg IH TID PRN #30 neb 06/26/18 Unknown Rx NEBS] Albuterol INH(or & Nicu Only) 1 puff IH Q4-6H PRN #1 inha 06/26/18 Unknown Rx [ProAir HFA Inhaler] Montelukast [Singulair] 10 mg PO QPM #14 tablet 06/26/18 Unknown Rx predniSONE [Deltasone] 50 mg PO QDAY #5 tab 06/26/18 Unknown Rx Acetaminophen/Codeine [Tylenol #3] 1 tab PO Q6H PRN #15 tab 10/12/18 Unknown Rx Menthol/Camphor [[place] 1 applicatio TP QID PRN #1 tube 10/16/18 Unknown Rx Ointment] Naproxen [Naprosyn] 500 mg PO BID PRN #30 tablet 10/16/18 Unknown Rx Clindamycin [Clindamycin CAP] 300 mg PO Q6H #9 capsule 08/07/19 Unknown Rx metroNIDAZOLE [Flagyl TAB] 500 mg PO Q8HR #30 tablet 08/07/19 Unknown Rx Allergies/Adverse Reactions: Allergies Allergy/AdvReac Type Severity Reaction Status Date / Time amoxicillin [Amoxicillin] Allergy Itching Verified 06/11/17 19:25 Penicillins Allergy Unknown Verified 06/11/17 19:25 ED Review of Systems ROS: Stated complaint: INFECTION/BODY PAIN/DRAINAGE Other details as noted in HPI Constitutional: chills, fever Eyes: denies: eye pain, eye discharge, vision change ENT: denies: ear pain, throat pain Respiratory: denies: cough, shortness of breath, wheezing Cardiovascular: denies: chest pain, palpitations Endocrine: no symptoms reported Gastrointestinal: abdominal pain, nausea. denies: vomiting, diarrhea Genitourinary: denies: urgency, dysuria, discharge Musculoskeletal: denies: back pain, joint swelling, arthralgia Skin: lesions (buttocks peranal ). denies: rash Neurological: denies: headache, weakness, paresthesias Psychiatric: denies: anxiety, depression Hematological/Lymphatic: denies: easy bleeding, easy bruising ED Past Medical Hx - Past Medical History Hx Hypertension: No Hx Liver Disease: No Hx Renal Disease: No Hx Headaches / Migraines: Yes (migraines) Hx Seizures: No Hx Asthma: Yes (last treated 04/2014, SEASONAL) Hx HIV: No Additional medical history: Carpal tennel - Surgical History Additional Surgical History: RIGHT OOPHERECTOMY/ECTOPIC PREG 2013 - Social History Smoking Status: Current Every Day Smoker Substance Use Type: Marijuana - Medications Home Medications: Home Medications Medication Instructions Recorded Confirmed Last Taken Type Clindamycin [Clindamycin CAP] 300 mg PO Q8H #30 cap 06/27/16 Unknown Rx Ibuprofen [Motrin] 600 mg PO Q8H PRN #15 tablet 06/27/16 Unknown Rx Ibuprofen [Motrin] 800 mg PO Q8HR PRN #25 tablet 10/03/16 Unknown Rx Neomycn/Bacitrc/Polymyx/Pramox 28 gm TP BID #1 oint...g. 10/03/16 Unknown Rx [Triple Antibioti-Pain Rlf Oint] Clindamycin [Clindamycin CAP] 300 mg PO Q8H 7 Days cap 11/22/17 Unknown Rx Ibuprofen [Motrin] 800 mg PO Q8HR PRN #20 tablet 11/22/17 Unknown Rx traMADoL [Ultram] 50 mg PO Q6HR PRN #10 tablet 11/22/17 Unknown Rx Famotidine [Pepcid] 20 mg PO DAILY #10 tablet 12/30/17 Unknown Rx Ondansetron [Zofran ODT TAB] 8 mg PO Q12HR #20 tab.rapdis 12/30/17 Unknown Rx Sulfamethoxazole/Trimethoprim 1 each PO BID #10 tablet 12/30/17 Unknown Rx [Bactrim DS TAB] Ibuprofen [Motrin] 600 mg PO Q8H PRN #20 tablet 04/06/18 Unknown Rx ALBUTEROL NEB's [Proventil 0.083% 2.5 mg IH TID PRN #30 neb 06/26/18 Unknown Rx NEBS] Albuterol INH(or & Nicu Only) 1 puff IH Q4-6H PRN #1 inha 06/26/18 Unknown Rx [ProAir HFA Inhaler] Montelukast [Singulair] 10 mg PO QPM #14 tablet 06/26/18 Unknown Rx predniSONE [Deltasone] 50 mg PO QDAY #5 tab 06/26/18 Unknown Rx Acetaminophen/Codeine [Tylenol #3] 1 tab PO Q6H PRN #15 tab 10/12/18 Unknown Rx Menthol/Camphor [[place] 1 applicatio TP QID PRN #1 tube 10/16/18 Unknown Rx Ointment] Naproxen [Naprosyn] 500 mg PO BID PRN #30 tablet 10/16/18 Unknown Rx Clindamycin [Clindamycin CAP] 300 mg PO Q6H #9 capsule 08/07/19 Unknown Rx metroNIDAZOLE [Flagyl TAB] 500 mg PO Q8HR #30 tablet 08/07/19 Unknown Rx ED Physical Exam - General Limitations: No Limitations General appearance: alert, in no apparent distress - Head Head exam: Present: atraumatic, normocephalic - Eye Eye exam: Present: normal appearance, PERRL Pupils: Present: normal accommodation - ENT ENT exam: Present: mucous membranes moist - Neck Neck exam: Present: normal inspection, full ROM. Absent: tenderness, lymphadenopathy - Respiratory Respiratory exam: Present: normal lung sounds bilaterally - Cardiovascular Cardiovascular Exam: Present: regular rate, normal rhythm, normal heart sounds. Absent: systolic murmur, diastolic murmur, rubs, gallop - GI/Abdominal GI/Abdominal exam: Present: soft, normal bowel sounds. Absent: distended, tenderness, bruit, hernia - Rectal Rectal exam: Present: deferred - Extremities Exam Extremities exam: Present: normal inspection, full ROM, tenderness, normal capillary refill - Back Exam Back exam: Present: normal inspection - Neurological Exam Neurological exam: Present: alert, oriented X3, CN II-XII intact, normal gait - Psychiatric Psychiatric exam: Present: normal affect, normal mood - Skin Skin exam: Present: warm, dry, intact, normal color. Absent: rash ED Course Vital Signs 08/06/19 08/06/19 19:31 21:02 Temperature 99.3 F Pulse Rate 99 H Respiratory 20 20 Rate Blood Pressure 142/83 O2 Sat by Pulse 100 Oximetry ED Medical Decision Making - Lab Data Result diagrams: 08/06/19 20:08 08/06/19 20:08 Labs 08/06/19 08/06/19 08/06/19 20:08 20:08 20:08 WBC 9.1 RBC 4.17 Hgb 12.6 Hct 36.8 MCV 88 MCH 30 MCHC 34 RDW 12.9 L Plt Count 305 Lymph % (Auto) 17.4 [place] % (Auto) 6.4 Eos % (Auto) 1.0 Baso % (Auto) 2.0 H Lymph # 1.6 [place] # 0.6 Eos # 0.1 Baso # 0.2 H Seg Neutrophils % 73.2 H Seg Neutrophils # 6.6 Sodium 140 Potassium 4.0 Chloride 101.8 Carbon Dioxide 24 Anion Gap 18 BUN 10 Creatinine 0.7 Estimated GFR > 60 BUN/Creatinine Ratio 14 Glucose 78 Lactic Acid 1.10 Calcium 9.1 Total Bilirubin 0.30 AST 22 ALT 20 Alkaline Phosphatase 64 Total Protein 7.6 Albumin 4.3 Albumin/Globulin Ratio 1.3 Urine Color Urine Turbidity Urine pH Ur Specific [place] Urine Protein Urine Glucose (UA) Urine Ketones Urine Blood Urine Nitrite Urine Bilirubin Urine Urobilinogen Ur Leukocyte Esterase Urine WBC (Auto) Urine RBC (Auto) U Epithel Cells (Auto) Urine HCG, Qual 08/06/19 22:10 WBC RBC Hgb Hct MCV MCH MCHC RDW Plt Count Lymph % (Auto) [place] % (Auto) Eos % (Auto) Baso % (Auto) Lymph # [place] # Eos # Baso # Seg Neutrophils % Seg Neutrophils # Sodium Potassium Chloride Carbon Dioxide Anion Gap BUN Creatinine Estimated GFR BUN/Creatinine Ratio Glucose Lactic Acid Calcium Total Bilirubin AST ALT Alkaline Phosphatase Total Protein Albumin Albumin/Globulin Ratio Urine Color Colorless Urine Turbidity Clear Urine pH 6.0 Ur Specific [place] 1.004 Urine Protein <15 mg/dl Urine Glucose (UA) Neg Urine Ketones Neg Urine Blood Neg Urine Nitrite Neg Urine Bilirubin Neg Urine Urobilinogen < 2.0 Ur Leukocyte Esterase Neg Urine WBC (Auto) < 1.0 Urine RBC (Auto) 1.0 U Epithel Cells (Auto) 2.0 Urine HCG, Qual Negative - Radiology Data Radiology results: report reviewed, image reviewed Findings Reporting MD: Baldomero Kovacs Dictation Time: August 06, 2019 22:30 Retread Mold Operator: Not available Slurry Worker Date: CT abdomen pelvis wo con INDICATION: "RIGHT SIDED" Rectal Abscess. TECHNIQUE: All CT scans at this location are performed using the following dose modulation technique: Automated exposure control. Helical slices were obtained through the abdomen and pelvis. No contrast is administered. COMPARISON: None available. FINDINGS: The lung bases are clear. Liver, spleen, pancreas, adrenal glands, and kidneys show no acute abnormality. The aorta is normal in diameter. The bowel is unremarkable. There is no obstruction or inflammation. Pelvis: The appendix is normal in appearance. There is a small amount of free fluid in the cul-de-sac characteristic of urologic fluid. There are a few phleboliths. There are no abnormal fluid collections within the pelvis. There is some mild stranding in the subcutaneous fat in the perianal location. No definite fluid collections seen. This may represent some mild inflammation at the site. This is a subtle finding. On review of bone windows, no acute osseous abnormalities are seen. IMPRESSION: 1. There is subtle stranding in the fat and perirenal location which may represent inflammation. There is a small amount of free fluid in the dependent portion of the pelvis characteristic of physiologic fluid. Signer Name: Baldomero Kovacs MD Signed: 08/06/2019 10:30 PM Workstation Name: [id number] - Medical Decision Making This is a perirectal abcess, pt states symptoms resolved , with medications ginven in ed. pt declines admissiont to General Srugery, plan: dc to home with rx for Clindamycin, flagyl, ultram follow up wiht general surgery in 2-3 days. Critical Care Time: Yes Critical care attestation.: If time is entered above; I have spent that time in minutes in the direct care of this critically ill patient, excluding procedure time. ED Disposition Clinical Impression: Perirectal abscess Disposition: DC-01 TO HOME OR SELFCARE Is pt being admited?: No Does the pt Need Aspirin: No Condition: Stable Instructions: Abscess (ED) Prescriptions: Clindamycin [Clindamycin CAP] 300 mg PO Q6H #9 capsule metroNIDAZOLE [Flagyl TAB] 500 mg PO Q8HR #30 tablet Referrals: PRIMARY CARE, [Primary Care Provider] - 3-5 Days ANNABELLE KAYE DO [Staff Physician] - 3-5 Days Forms: Work/School Release Form(ED) Time of Disposition: 00:05
[2019-08-06 20:43] LABS: Alanine Aminotransferase 20 units/L (7-56); Albumin 4.3 g/dL (3.9-5); BUN/Creatinine Ratio 14; Blood Urea Nitrogen 10 mg/dL (7-17); Calcium 9.1 mg/dL (8.4-10.2); Hemolysis Index 2
[2019-08-06 22:38] LABS: Bilirubin,Urine NEG (Negative); Blood,Urine NEG (Negative); Color,Urine Colorless (Yellow); Protein,Urine <15 mg/dL mg/dL (Negative); Urobilinogen,Urine < 2.0 mg/dL (<2.0); WBC,Urine < 1.0 /HPF (0.0-6.0)
[2019-08-06 22:46] LABS: HCG Qualitative,Urine Negative (Negative)
--- NOTE | 2019-08-06 23:35 | Cat Scan Report ---
CT abdomen pelvis wo con INDICATION: "RIGHT SIDED" Rectal Abscess. TECHNIQUE: All CT scans at this location are performed using the following dose modulation technique: Automated exposure control. Helical slices were obtained through the abdomen and pelvis. No contrast is adminis tered. COMPARISON: None available. FINDINGS: The lung bases are clear. Liver, spleen, pancreas, adrenal glands, and kidneys show no acute abnormal ity. The aorta is normal in diameter. The bowel is unremarkable. There is no obstruction or inflammat ion. Pelvis: The appendix is normal in appearance. There is a small amount of free fluid in the cul-de-sac characteristic of urologic fluid. There are a few phleboliths. There are no abnormal fluid collections within the pelvis. There is some mild stranding in the subcutaneous fat in the perianal location. No definite fluid harvey ections seen. This may represent some mild inflammation at the site. This is a subtle finding. On review of bone windows, no acute osseous abnormalities are seen. IMPRESSION: 1. There is subtle stranding in the fat and perirenal location which may represent inflammation. There is a small amount of free fluid in the dependent portion of the pelvis characteristic of physio logic fluid. Signer Name: Baldomero Kovacs MD Signed: 08/06/2019 11:30 PM Workstation Name: [id number]
== END 2019-08-07 00:32 | disposition home or self-care (01) ==
LOC: ED 19:27
DX: K61.1 Rectal abscess (principal); G43.909 Migraine, unspecified, not intractable, without status migrainosus; J45.909 Unspecified asthma, uncomplicated; F17.200 Nicotine dependence, unspecified, uncomplicated; F12.10 Cannabis abuse, uncomplicated; Z98.890 Other specified postprocedural states
CPT/HCPCS: 36415; 74176; 80053; 81001; 81025; 82140; 85025; 87040; 96365; 96375; 99284; J1885; J2405; J7030

== ENCOUNTER 2019-11-10 22:32 | Emergency (ER) | payer OTHER ==
[2019-11-10 22:50] VITALS: BP 127/64
--- NOTE | 2019-11-10 23:59 | Emergency Department Report ---
- General Chief complaint: Skin/Abscess/Foreign Body Stated complaint: LIP INFECTION Time Seen by Provider: 11/10/19 23:39 Source: patient Mode of arrival: Ambulatory Limitations: No Limitations - History of Present Illness Initial comments: Patient is a 23-year-old -Nepalese female who presents with fever blister to left lower lip. There is associated itching and burning with mild swelling. No drainage or open lesion. There is been no fevers no chills no throat or ear pain. there are no other relieving or exacerbating factors. MD complaint: lesion (LL Lip) Onset/Timin -: days(s) Tetanus Up to Date: yes Location: face Severity: mild Severity scale (0 -10): 4 Quality: burning, other (itching ) Consistency: constant Improves with: none Worsens with: palpation Context: none Associated symptoms: denies other symptoms Treatments Prior to Arrival: none - Related Data Previous Rx's Medication Instructions Recorded Last Taken Type Clindamycin [Clindamycin CAP] 300 mg PO Q8H #30 cap 06/27/16 Unknown Rx Ibuprofen [Motrin] 600 mg PO Q8H PRN #15 tablet 06/27/16 Unknown Rx Ibuprofen [Motrin] 800 mg PO Q8HR PRN #25 tablet 10/03/16 Unknown Rx Neomycn/Bacitrc/Polymyx/Pramox 28 gm TP BID #1 oint...g. 10/03/16 Unknown Rx [Triple Antibioti-Pain Rlf Oint] Clindamycin [Clindamycin CAP] 300 mg PO Q8H 7 Days cap 11/22/17 Unknown Rx Ibuprofen [Motrin] 800 mg PO Q8HR PRN #20 tablet 11/22/17 Unknown Rx traMADoL [Ultram] 50 mg PO Q6HR PRN #10 tablet 11/22/17 Unknown Rx Famotidine [Pepcid] 20 mg PO DAILY #10 tablet 12/30/17 Unknown Rx Ondansetron [Zofran ODT TAB] 8 mg PO Q12HR #20 tab.rapdis 12/30/17 Unknown Rx Sulfamethoxazole/Trimethoprim 1 each PO BID #10 tablet 12/30/17 Unknown Rx [Bactrim DS TAB] Ibuprofen [Motrin] 600 mg PO Q8H PRN #20 tablet 04/06/18 Unknown Rx ALBUTEROL NEB's [Proventil 0.083% 2.5 mg IH TID PRN #30 neb 06/26/18 Unknown Rx NEBS] Albuterol Mdi (or & Nicu Only) 1 puff IH Q4-6H PRN #1 inha 06/26/18 Unknown Rx [ProAir HFA Inhaler] Montelukast [Singulair] 10 mg PO QPM #14 tablet 06/26/18 Unknown Rx predniSONE [Deltasone] 50 mg PO QDAY #5 tab 06/26/18 Unknown Rx Acetaminophen/Codeine [Tylenol #3] 1 tab PO Q6H PRN #15 tab 10/12/18 Unknown Rx Menthol/Camphor [[place] 1 applicatio TP QID PRN #1 tube 10/16/18 Unknown Rx Ointment] Naproxen [Naprosyn] 500 mg PO BID PRN #30 tablet 10/16/18 Unknown Rx Clindamycin [Clindamycin CAP] 300 mg PO Q6H #9 capsule 08/07/19 Unknown Rx metroNIDAZOLE [Flagyl TAB] 500 mg PO Q8HR #30 tablet 08/07/19 Unknown Rx traMADoL [Ultram] 50 mg PO Q6HR PRN #12 tablet 08/07/19 Unknown Rx Allergies Allergy/AdvReac Type Severity Reaction Status Date / Time amoxicillin [Amoxicillin] Allergy Itching Verified 06/11/17 19:25 Penicillins Allergy Unknown Verified 06/11/17 19:25 Abscess Boil HPI - HPI Chief Complaint: Skin/Abscess/Foreign Body Stated Complaint: LIP INFECTION Time Seen by Provider: 11/10/19 23:39 Home Medications: Previous Rx's Medication Instructions Recorded Last Taken Type Clindamycin [Clindamycin CAP] 300 mg PO Q8H #30 cap 06/27/16 Unknown Rx Ibuprofen [Motrin] 600 mg PO Q8H PRN #15 tablet 06/27/16 Unknown Rx Ibuprofen [Motrin] 800 mg PO Q8HR PRN #25 tablet 10/03/16 Unknown Rx Neomycn/Bacitrc/Polymyx/Pramox 28 gm TP BID #1 oint...g. 10/03/16 Unknown Rx [Triple Antibioti-Pain Rlf Oint] Clindamycin [Clindamycin CAP] 300 mg PO Q8H 7 Days cap 11/22/17 Unknown Rx Ibuprofen [Motrin] 800 mg PO Q8HR PRN #20 tablet 11/22/17 Unknown Rx traMADoL [Ultram] 50 mg PO Q6HR PRN #10 tablet 11/22/17 Unknown Rx Famotidine [Pepcid] 20 mg PO DAILY #10 tablet 12/30/17 Unknown Rx Ondansetron [Zofran ODT TAB] 8 mg PO Q12HR #20 tab.rapdis 12/30/17 Unknown Rx Sulfamethoxazole/Trimethoprim 1 each PO BID #10 tablet 12/30/17 Unknown Rx [Bactrim DS TAB] Ibuprofen [Motrin] 600 mg PO Q8H PRN #20 tablet 04/06/18 Unknown Rx ALBUTEROL NEB's [Proventil 0.083% 2.5 mg IH TID PRN #30 neb 06/26/18 Unknown Rx NEBS] Albuterol Mdi (or & Nicu Only) 1 puff IH Q4-6H PRN #1 inha 06/26/18 Unknown Rx [ProAir HFA Inhaler] Montelukast [Singulair] 10 mg PO QPM #14 tablet 06/26/18 Unknown Rx predniSONE [Deltasone] 50 mg PO QDAY #5 tab 06/26/18 Unknown Rx Acetaminophen/Codeine [Tylenol #3] 1 tab PO Q6H PRN #15 tab 10/12/18 Unknown Rx Menthol/Camphor [[place] 1 applicatio TP QID PRN #1 tube 10/16/18 Unknown Rx Ointment] Naproxen [Naprosyn] 500 mg PO BID PRN #30 tablet 10/16/18 Unknown Rx Clindamycin [Clindamycin CAP] 300 mg PO Q6H #9 capsule 08/07/19 Unknown Rx metroNIDAZOLE [Flagyl TAB] 500 mg PO Q8HR #30 tablet 08/07/19 Unknown Rx traMADoL [Ultram] 50 mg PO Q6HR PRN #12 tablet 08/07/19 Unknown Rx Allergies/Adverse Reactions: Allergies Allergy/AdvReac Type Severity Reaction Status Date / Time amoxicillin [Amoxicillin] Allergy Itching Verified 06/11/17 19:25 Penicillins Allergy Unknown Verified 06/11/17 19:25 ED Review of Systems ROS: Stated complaint: LIP INFECTION Other details as noted in HPI Constitutional: denies: chills, fever Eyes: denies: eye pain, eye discharge, vision change ENT: other (Lip leasion LL ) Respiratory: denies: cough, shortness of breath, wheezing Cardiovascular: denies: chest pain, palpitations Endocrine: no symptoms reported Gastrointestinal: as per HPI Genitourinary: as per HPI Musculoskeletal: denies: back pain, joint swelling, arthralgia Skin: lesions (as above ). denies: rash Neurological: denies: headache, weakness, paresthesias Psychiatric: denies: anxiety, depression Hematological/Lymphatic: denies: easy bleeding, easy bruising ED Past Medical Hx - Past Medical History Hx Hypertension: No Hx Liver Disease: No Hx Renal Disease: No Hx Headaches / Migraines: Yes (migraines) Hx Seizures: No Hx Asthma: Yes (last treated 04/2014, SEASONAL) Hx HIV: No Additional medical history: Carpal tennel - Surgical History Additional Surgical History: RIGHT OOPHERECTOMY/ECTOPIC PREG 2013 - Social History Smoking Status: Current Every Day Smoker Substance Use Type: Alcohol, Marijuana - Medications Home Medications: Home Medications Medication Instructions Recorded Confirmed Last Taken Type Clindamycin [Clindamycin CAP] 300 mg PO Q8H #30 cap 06/27/16 Unknown Rx Ibuprofen [Motrin] 600 mg PO Q8H PRN #15 tablet 06/27/16 Unknown Rx Ibuprofen [Motrin] 800 mg PO Q8HR PRN #25 tablet 10/03/16 Unknown Rx Neomycn/Bacitrc/Polymyx/Pramox 28 gm TP BID #1 oint...g. 10/03/16 Unknown Rx [Triple Antibioti-Pain Rlf Oint] Clindamycin [Clindamycin CAP] 300 mg PO Q8H 7 Days cap 11/22/17 Unknown Rx Ibuprofen [Motrin] 800 mg PO Q8HR PRN #20 tablet 11/22/17 Unknown Rx traMADoL [Ultram] 50 mg PO Q6HR PRN #10 tablet 11/22/17 Unknown Rx Famotidine [Pepcid] 20 mg PO DAILY #10 tablet 12/30/17 Unknown Rx Ondansetron [Zofran ODT TAB] 8 mg PO Q12HR #20 tab.rapdis 12/30/17 Unknown Rx Sulfamethoxazole/Trimethoprim 1 each PO BID #10 tablet 12/30/17 Unknown Rx [Bactrim DS TAB] Ibuprofen [Motrin] 600 mg PO Q8H PRN #20 tablet 04/06/18 Unknown Rx ALBUTEROL NEB's [Proventil 0.083% 2.5 mg IH TID PRN #30 neb 06/26/18 Unknown Rx NEBS] Albuterol Mdi (or & Nicu Only) 1 puff IH Q4-6H PRN #1 inha 06/26/18 Unknown Rx [ProAir HFA Inhaler] Montelukast [Singulair] 10 mg PO QPM #14 tablet 06/26/18 Unknown Rx predniSONE [Deltasone] 50 mg PO QDAY #5 tab 06/26/18 Unknown Rx Acetaminophen/Codeine [Tylenol #3] 1 tab PO Q6H PRN #15 tab 10/12/18 Unknown Rx Menthol/Camphor [[place] 1 applicatio TP QID PRN #1 tube 10/16/18 Unknown Rx Ointment] Naproxen [Naprosyn] 500 mg PO BID PRN #30 tablet 10/16/18 Unknown Rx Clindamycin [Clindamycin CAP] 300 mg PO Q6H #9 capsule 08/07/19 Unknown Rx metroNIDAZOLE [Flagyl TAB] 500 mg PO Q8HR #30 tablet 08/07/19 Unknown Rx traMADoL [Ultram] 50 mg PO Q6HR PRN #12 tablet 08/07/19 Unknown Rx ED Physical Exam - General Limitations: No Limitations General appearance: alert, in no apparent distress - Head Head exam: Present: atraumatic, normocephalic - Eye Eye exam: Present: normal appearance, PERRL, EOMI Pupils: Present: normal accommodation - ENT ENT exam: Present: normal orophraynx, mucous membranes moist, TM's normal bilaterally, normal external ear exam, other (LL lip lesion less than 1 cm, no weeping, no fever, mild erythema ) - Neck Neck exam: Present: normal inspection, full ROM. Absent: tenderness, lymphadenopathy, thyromegaly - Respiratory Respiratory exam: Present: normal lung sounds bilaterally. Absent: respiratory distress, wheezes, stridor, chest wall tenderness - Cardiovascular Cardiovascular Exam: Present: regular rate, normal rhythm, normal heart sounds. Absent: systolic murmur, diastolic murmur, rubs, gallop - GI/Abdominal GI/Abdominal exam: Present: soft, normal bowel sounds. Absent: distended, tenderness, guarding, rigid, bruit, hernia - Rectal Rectal exam: Present: deferred - Extremities Exam Extremities exam: Present: normal inspection, full ROM. Absent: tenderness - Back Exam Back exam: Present: normal inspection, full ROM. Absent: CVA tenderness (R), CVA tenderness (L), vertebral tenderness - Neurological Exam Neurological exam: Present: alert, oriented X3, CN II-XII intact, normal gait - Psychiatric Psychiatric exam: Present: normal affect, normal mood - Skin Skin exam: Present: warm, dry, intact, normal color. Absent: rash ED Course Vital Signs 11/10/19 22:37 Temperature 98.1 F Pulse Rate 83 Respiratory 14 Rate Blood Pressure 127/64 O2 Sat by Pulse 98 Oximetry ED Medical Decision Making - Medical Decision Making This is a hepatic lobe ulcer , there is no throat or ear pain, patient denies vaginal or perineal rash no other open lesions noted. Plan acyclovir ointment twice daily, Benadryl as needed itching follow-up with primary care doctor in 2 to 3 days. Patient verbalizes agreement and understanding with discharge plan. Patient DC'd home in stable condition at this time. Critical care attestation.: If time is entered above; I have spent that time in minutes in the direct care of this critically ill patient, excluding procedure time. ED Disposition Clinical Impression: Fever blister Disposition: DC-01 TO HOME OR SELFCARE Is pt being admited?: No Does the pt Need Aspirin: No Condition: Stable Instructions: Oral Herpes Simplex Virus Infections (ED) Additional Instructions: follow up with your primary care doctor in 2-3 days. Referrals: CARLOS BURDICK MD [Referring] - 3-5 Days Forms: Work/School Release Form(ED) Time of Disposition: 00:04
== END 2019-11-11 00:14 | disposition home or self-care (01) ==
LOC: ED 22:32
DX: B00.1 Herpesviral vesicular dermatitis (principal); J45.909 Unspecified asthma, uncomplicated; G43.909 Migraine, unspecified, not intractable, without status migrainosus; F17.200 Nicotine dependence, unspecified, uncomplicated; F12.90 Cannabis use, unspecified, uncomplicated; Z88.0 Allergy status to penicillin; Z79.899 Other long term (current) drug therapy; Z98.890 Other specified postprocedural states
CPT/HCPCS: 99282

== ENCOUNTER 2020-01-09 18:58 | Emergency (ER) | payer OTHER ==
[2020-01-09 19:50] LABS: Basophils # (Auto) 0.1 K/mm3 (0.0-0.1); Basophils % (Auto) 0.8 % (0.0-1.8); Eosinophils # (Auto) 0.2 K/mm3 (0.0-0.4); Eosinophils % (Auto) 2.1 % (0.0-4.3); Hematocrit 37.9 % (30.3-42.9); Hemoglobin 12.9 gm/dl (10.1-14.3); Lymphocytes # (Auto) 3.1 K/mm3 (1.2-5.4); Lymphocytes % (Auto) 41.8 % (13.4-35.0); Mean Corpuscular HGB Conc 34 % (30-34); Mean Corpuscular Volume 88 fl (79-97); Monocytes # (Auto) 0.5 K/mm3 (0.0-0.8); Monocytes % (Auto) 6.2 % (0.0-7.3); Platelet Count 280 K/mm3 (140-440); Red Cell Distribution Width 13.5 % (13.2-15.2)
[2020-01-09 20:29] LABS: Alanine Aminotransferase 14 units/L (7-56); Albumin 4.4 g/dL (3.9-5); BUN/Creatinine Ratio 14; Blood Urea Nitrogen 11 mg/dL (7-17); Calcium 9.6 mg/dL (8.4-10.2); Hemolysis Index 14
[2020-01-09 22:10] LABS: Bilirubin,Urine NEG (Negative); Blood,Urine NEG (Negative); Color,Urine Yellow (Yellow); Mucus,Urine FEW /HPF; Protein,Urine <15 mg/dL mg/dL (Negative); Urobilinogen,Urine < 2.0 mg/dL (<2.0)
--- NOTE | 2020-01-09 22:24 | Emergency Department Report ---
ED General Adult HPI - General Chief complaint: Weakness Stated complaint: LBP/LIGHTHEADED Time Seen by Provider: 01/09/20 20:00 Source: patient Mode of arrival: Ambulatory Limitations: No Limitations - History of Present Illness Initial comments: 24-year-old -[place] female patient without past medical history presents with complaints of intermittent lightheadedness x1 week. Patient reports that she went to donate plasma today and they informed her that her blood pressure was low, however patient is unsure of the read. She denies having her plasma drawn today. She also denies any headache, syncopal episodes, vision changes, room spinning dizziness, head trauma, numbness/tingling/weakness in her limbs, difficulty with speech/ambulation, history of CVA/DVT/PE, chest pain, shortness of breath, recent long travel, leg pain/swelling, hormone use, cough, emesis, or history of cancer. Patient reports the dizziness occurs mainly when changing body positions. - Related Data Previous Rx's Medication Instructions Recorded Last Taken Type Clindamycin [Clindamycin CAP] 300 mg PO Q8H #30 cap 06/27/16 Unknown Rx Ibuprofen [Motrin] 600 mg PO Q8H PRN #15 tablet 06/27/16 Unknown Rx Ibuprofen [Motrin] 800 mg PO Q8HR PRN #25 tablet 10/03/16 Unknown Rx Neomycn/Bacitrc/Polymyx/Pramox 28 gm TP BID #1 oint...g. 10/03/16 Unknown Rx [Triple Antibioti-Pain Rlf Oint] Clindamycin [Clindamycin CAP] 300 mg PO Q8H 7 Days cap 11/22/17 Unknown Rx Ibuprofen [Motrin] 800 mg PO Q8HR PRN #20 tablet 11/22/17 Unknown Rx traMADoL [Ultram] 50 mg PO Q6HR PRN #10 tablet 11/22/17 Unknown Rx Famotidine [Pepcid] 20 mg PO DAILY #10 tablet 12/30/17 Unknown Rx Ondansetron [Zofran ODT TAB] 8 mg PO Q12HR #20 tab.rapdis 12/30/17 Unknown Rx Sulfamethoxazole/Trimethoprim 1 each PO BID #10 tablet 12/30/17 Unknown Rx [Bactrim DS TAB] Ibuprofen [Motrin] 600 mg PO Q8H PRN #20 tablet 04/06/18 Unknown Rx ALBUTEROL NEB's [Proventil 0.083% 2.5 mg IH TID PRN #30 neb 06/26/18 Unknown Rx NEBS] Albuterol Mdi (or & Nicu Only) 1 puff IH Q4-6H PRN #1 inha 06/26/18 Unknown Rx [ProAir HFA Inhaler] Montelukast [Singulair] 10 mg PO QPM #14 tablet 06/26/18 Unknown Rx predniSONE [Deltasone] 50 mg PO QDAY #5 tab 06/26/18 Unknown Rx Acetaminophen/Codeine [Tylenol #3] 1 tab PO Q6H PRN #15 tab 10/12/18 Unknown Rx Menthol/Camphor [[place] 1 applicatio TP QID PRN #1 tube 10/16/18 Unknown Rx Ointment] Naproxen [Naprosyn] 500 mg PO BID PRN #30 tablet 10/16/18 Unknown Rx Clindamycin [Clindamycin CAP] 300 mg PO Q6H #9 capsule 08/07/19 Unknown Rx metroNIDAZOLE [Flagyl TAB] 500 mg PO Q8HR #30 tablet 08/07/19 Unknown Rx traMADoL [Ultram] 50 mg PO Q6HR PRN #12 tablet 08/07/19 Unknown Rx Acyclovir [Acyclovir Ointment] 1 applicatio TP 5XD 7 Days #1 tube 11/11/19 Unknown Rx Acyclovir [Zovirax Tab] 400 mg PO Q8H 7 Days #21 tab 11/11/19 Unknown Rx Allergies Allergy/AdvReac Type Severity Reaction Status Date / Time amoxicillin [Amoxicillin] Allergy Itching Verified 06/11/17 19:25 Penicillins Allergy Unknown Verified 06/11/17 19:25 ED Review of Systems ROS: Stated complaint: LBP/LIGHTHEADED Other details as noted in HPI Constitutional: denies: chills, diaphoresis, fever, malaise, weakness Eyes: denies: vision change ENT: denies: ear pain, throat pain, hearing loss Respiratory: denies: cough, SOB with exertion Cardiovascular: denies: chest pain Endocrine: denies: excessive sweating Gastrointestinal: denies: abdominal pain, nausea, vomiting, diarrhea, constipation, hematemesis, hematochezia Genitourinary: denies: urgency, dysuria, frequency, hematuria, discharge, abnormal menses Musculoskeletal: denies: back pain Skin: denies: rash, lesions, change in color Neurological: denies: headache, weakness, numbness, paresthesias, confusion, abnormal gait Hematological/Lymphatic: denies: easy bleeding, easy bruising ED Past Medical Hx - Past Medical History Previous Medical History?: Yes Hx Hypertension: No Hx Liver Disease: No Hx Renal Disease: No Hx Headaches / Migraines: Yes (migraines) Hx Seizures: No Hx Asthma: Yes (last treated 04/2014, SEASONAL) Hx HIV: No Additional medical history: Carpal tennel - Surgical History Past Surgical History?: Yes Additional Surgical History: RIGHT OOPHERECTOMY/ECTOPIC PREG 2013 - Social History Smoking Status: Current Every Day Smoker Substance Use Type: Alcohol, Marijuana - Medications Home Medications: Home Medications Medication Instructions Recorded Confirmed Last Taken Type Clindamycin [Clindamycin CAP] 300 mg PO Q8H #30 cap 06/27/16 Unknown Rx Ibuprofen [Motrin] 600 mg PO Q8H PRN #15 tablet 06/27/16 Unknown Rx Ibuprofen [Motrin] 800 mg PO Q8HR PRN #25 tablet 10/03/16 Unknown Rx Neomycn/Bacitrc/Polymyx/Pramox 28 gm TP BID #1 oint...g. 10/03/16 Unknown Rx [Triple Antibioti-Pain Rlf Oint] Clindamycin [Clindamycin CAP] 300 mg PO Q8H 7 Days cap 11/22/17 Unknown Rx Ibuprofen [Motrin] 800 mg PO Q8HR PRN #20 tablet 11/22/17 Unknown Rx traMADoL [Ultram] 50 mg PO Q6HR PRN #10 tablet 11/22/17 Unknown Rx Famotidine [Pepcid] 20 mg PO DAILY #10 tablet 12/30/17 Unknown Rx Ondansetron [Zofran ODT TAB] 8 mg PO Q12HR #20 tab.rapdis 12/30/17 Unknown Rx Sulfamethoxazole/Trimethoprim 1 each PO BID #10 tablet 12/30/17 Unknown Rx [Bactrim DS TAB] Ibuprofen [Motrin] 600 mg PO Q8H PRN #20 tablet 04/06/18 Unknown Rx ALBUTEROL NEB's [Proventil 0.083% 2.5 mg IH TID PRN #30 neb 06/26/18 Unknown Rx NEBS] Albuterol Mdi (or & Nicu Only) 1 puff IH Q4-6H PRN #1 inha 06/26/18 Unknown Rx [ProAir HFA Inhaler] Montelukast [Singulair] 10 mg PO QPM #14 tablet 06/26/18 Unknown Rx predniSONE [Deltasone] 50 mg PO QDAY #5 tab 06/26/18 Unknown Rx Acetaminophen/Codeine [Tylenol #3] 1 tab PO Q6H PRN #15 tab 10/12/18 Unknown Rx Menthol/Camphor [[place] 1 applicatio TP QID PRN #1 tube 10/16/18 Unknown Rx Ointment] Naproxen [Naprosyn] 500 mg PO BID PRN #30 tablet 10/16/18 Unknown Rx Clindamycin [Clindamycin CAP] 300 mg PO Q6H #9 capsule 08/07/19 Unknown Rx metroNIDAZOLE [Flagyl TAB] 500 mg PO Q8HR #30 tablet 08/07/19 Unknown Rx traMADoL [Ultram] 50 mg PO Q6HR PRN #12 tablet 08/07/19 Unknown Rx Acyclovir [Acyclovir Ointment] 1 applicatio TP 5XD 7 Days #1 tube 11/11/19 Unknown Rx Acyclovir [Zovirax Tab] 400 mg PO Q8H 7 Days #21 tab 11/11/19 Unknown Rx ED Physical Exam - General Limitations: No Limitations General appearance: alert, in no apparent distress - Head Head exam: Present: atraumatic, normocephalic - Eye Eye exam: Present: normal appearance, PERRL, EOMI. Absent: scleral icterus - ENT ENT exam: Present: mucous membranes moist - Neck Neck exam: Present: normal inspection, full ROM. Absent: lymphadenopathy - Respiratory Respiratory exam: Present: normal lung sounds bilaterally. Absent: respiratory distress - Cardiovascular Cardiovascular Exam: Present: regular rate, normal rhythm. Absent: systolic murmur, diastolic murmur, rubs, gallop - GI/Abdominal GI/Abdominal exam: Present: soft, normal bowel sounds. Absent: distended, tenderness, guarding, rebound, rigid - Extremities Exam Extremities exam: Present: normal inspection. Absent: calf tenderness (No swell ing or tenderness to palpation noted to legs bilaterally) - Back Exam Back exam: Present: normal inspection - Neurological Exam Neurological exam: Present: alert, oriented X3, CN II-XII intact, normal gait. Absent: motor sensory deficit - Expanded Neurological Exam Expanded Speech: Present: fluid speech Cerebellar function: Finger to Nose: Normal, Heel to [place]: Normal, [place]: Normal Sensory exam: Upper Extremity Light Touch: Normal, Lower Extremity Light Touch: Normal Motor strength exam: RUE: 5, LUE: 5, RLE: 5, LLE: 5 Best Eye Response ([place]): (4) open spontaneously Best Motor Response ([place]): (6) obeys commands Best Verbal Response ([place]): (5) oriented [place] Total: 15 - Psychiatric Psychiatric exam: Present: normal affect, normal mood - Skin Skin exam: Present: warm, dry, intact, normal color. Absent: rash, cyanosis, diaphoretic, erythema, pallor, ecchymosis ED Course Vital Signs 01/09/20 19:03 Temperature 98.9 F Pulse Rate 69 Respiratory 16 Rate Blood Pressure 107/65 O2 Sat by Pulse 99 Oximetry ED Medical Decision Making - Lab Data Result diagrams: 01/09/20 19:36 01/09/20 19:36 Lab Results 01/09/20 01/09/20 01/09/20 Range/Units 19:36 19:36 19:36 WBC 7.5 (4.5-11.0) K/mm3 RBC 4.30 (3.65-5.03) M/mm3 Hgb 12.9 (10.1-14.3) gm/dl Hct 37.9 (30.3-42.9) % MCV 88 (79-97) fl MCH 30 (28-32) pg MCHC 34 (30-34) % RDW 13.5 (13.2-15.2) % Plt Count 280 (140-440) K/mm3 Lymph % (Auto) 41.8 H (13.4-35.0) % [place] % (Auto) 6.2 (0.0-7.3) % Eos % (Auto) 2.1 (0.0-4.3) % Baso % (Auto) 0.8 (0.0-1.8) % Lymph # (Auto) 3.1 (1.2-5.4) K/mm3 [place] # (Auto) 0.5 (0.0-0.8) K/mm3 Eos # (Auto) 0.2 (0.0-0.4) K/mm3 Baso # (Auto) 0.1 (0.0-0.1) K/mm3 Seg Neutrophils % 49.1 (40.0-70.0) % Seg Neutrophils # 3.7 (1.8-7.7) K/mm3 Sodium 139 (137-145) mmol/L Potassium 3.7 (3.6-5.0) mmol/L Chloride 103.1 (98-107) mmol/L Carbon Dioxide 23 (22-30) mmol/L Anion Gap 17 mmol/L BUN 11 (7-17) mg/dL Creatinine 0.8 (0.6-1.2) mg/dL Estimated GFR > 60 ml/min BUN/Creatinine Ratio 14 % Glucose 87 (65-100) mg/dL Calcium 9.6 (8.4-10.2) mg/dL Total Bilirubin 0.20 (0.1-1.2) mg/dL AST 17 (5-40) units/L ALT 14 (7-56) units/L Alkaline Phosphatase 67 (35-129) units/L Total Protein 7.3 (6.3-8.2) g/dL Albumin 4.4 (3.9-5) g/dL Albumin/Globulin Ratio 1.5 % HCG, Qual Negative (Negative) Urine Color (Yellow) Urine Turbidity (Clear) Urine pH (5.0-7.0) Ur Specific [place] (1.003-1.030) Urine Protein (Negative) mg/dL Urine Glucose (UA) (Negative) mg/dL Urine Ketones (Negative) mg/dL Urine Blood (Negative) Urine Nitrite (Negative) Urine Bilirubin (Negative) Urine Urobilinogen (<2.0) mg/dL Ur Leukocyte Esterase (Negative) Urine WBC (Auto) (0.0-6.0) /HPF Urine RBC (Auto) (0.0-6.0) /HPF U Epithel Cells (Auto) (0-13.0) /HPF Urine Mucus /HPF 10/24/20 Range/Units Unknown WBC (4.5-11.0) K/mm3 RBC (3.65-5.03) M/mm3 Hgb (10.1-14.3) gm/dl Hct (30.3-42.9) % MCV (79-97) fl MCH (28-32) pg MCHC (30-34) % RDW (13.2-15.2) % Plt Count (140-440) K/mm3 Lymph % (Auto) (13.4-35.0) % [place] % (Auto) (0.0-7.3) % Eos % (Auto) (0.0-4.3) % Baso % (Auto) (0.0-1.8) % Lymph # (Auto) (1.2-5.4) K/mm3 [place] # (Auto) (0.0-0.8) K/mm3 Eos # (Auto) (0.0-0.4) K/mm3 Baso # (Auto) (0.0-0.1) K/mm3 Seg Neutrophils % (40.0-70.0) % Seg Neutrophils # (1.8-7.7) K/mm3 Sodium (137-145) mmol/L Potassium (3.6-5.0) mmol/L Chloride (98-107) mmol/L Carbon Dioxide (22-30) mmol/L Anion Gap mmol/L BUN (7-17) mg/dL Creatinine (0.6-1.2) mg/dL Estimated GFR ml/min BUN/Creatinine Ratio % Glucose (65-100) mg/dL Calcium (8.4-10.2) mg/dL Total Bilirubin (0.1-1.2) mg/dL AST (5-40) units/L ALT (7-56) units/L Alkaline Phosphatase (35-129) units/L Total Protein (6.3-8.2) g/dL Albumin (3.9-5) g/dL Albumin/Globulin Ratio % HCG, Qual (Negative) Urine Color Yellow (Yellow) Urine Turbidity Slightly-cloudy (Clear) Urine pH 6.0 (5.0-7.0) Ur Specific [place] 1.021 (1.003-1.030) Urine Protein <15 mg/dl (Negative) mg/dL Urine Glucose (UA) Neg (Negative) mg/dL Urine Ketones Neg (Negative) mg/dL Urine Blood Neg (Negative) Urine Nitrite Neg (Negative) Urine Bilirubin Neg (Negative) Urine Urobilinogen < 2.0 (<2.0) mg/dL Ur Leukocyte Esterase Neg (Negative) Urine WBC (Auto) 1.0 (0.0-6.0) /HPF Urine RBC (Auto) 1.0 (0.0-6.0) /HPF U Epithel Cells (Auto) 9.0 (0-13.0) /HPF Urine Mucus Few /HPF - Medical Decision Making 24-year-old -[place] female patient without past medical history presents with complaints of intermittent lightheadedness x1 week. Patient reports that she went to donate plasma today and they informed her that her blood pressure was low, however patient is unsure of the read. She denies having her plasma drawn today. She also denies any headache, vision changes, room spinning dizziness, head trauma, numbness/tingling/weakness in her limbs, difficulty with speech/ambulation, history of CVA/DVT/PE, chest pain, shortness of breath, recent long travel, leg pain/swelling, hormone use, cough, emesis, or history of cancer. Patient reports the dizziness occurs mainly when changing body positions. Neuro exam is normal. Anion gap noted to be 17 on CMP, otherwise CBC and CMP are normal. Orthostatic vitals show mild orthostatic hypotension. Symptoms possibly due to dehydration. Recommend patient increase her water intake to a minimum of 90 ounces of water a day given her body weight. Also recommend follow-up with primary care within 2 days. Her vitals are normal, she is well- appearing, she is stable for discharge home. Strict return precautions were discussed in detail with patient who verbalizes understanding. Critical care attestation.: If time is entered above; I have spent that time in minutes in the direct care of this critically ill patient, excluding procedure time. ED Disposition Clinical Impression: Lightheaded, Orthostatic hypotension Disposition: DC-01 TO HOME OR SELFCARE Is pt being admited?: No Condition: Stable Instructions: Dehydration (ED), Lightheadedness (ED) Referrals: [facility] [Provider Group] - 01/11/20
[2020-01-09 22:38] VITALS: BP 124/86
== END 2020-01-09 22:37 | disposition home or self-care (01) ==
LOC: ED 18:58
DX: R42 Dizziness and giddiness (principal); I95.1 Orthostatic hypotension; G43.909 Migraine, unspecified, not intractable, without status migrainosus; J45.909 Unspecified asthma, uncomplicated; F17.200 Nicotine dependence, unspecified, uncomplicated; F12.10 Cannabis abuse, uncomplicated; Z98.890 Other specified postprocedural states; Z79.1 Long term (current) use of non-steroidal anti-inflammatories (NSAID); Z79.2 Long term (current) use of antibiotics; Z79.899 Other long term (current) drug therapy; Z88.0 Allergy status to penicillin; Z88.1 Allergy status to other antibiotic agents
CPT/HCPCS: 36415; 80053; 81001; 84703; 85025; 93005

== ENCOUNTER 2020-04-05 23:51 | Emergency (ER) | payer OTHER ==
--- NOTE | 2020-04-06 00:04 | Event Note ---
ED Screening Note Date of service: 04/06/20 Time: 00:01 ED Screening Note: Pt is a 24 y/o aaf who presents for left forearm numbness x 30 mins, pt arrives via EMS , she denies injury fall or trauma, she confirms hx or left forearm carpal tunnel syndrome. pain at this time is 4/10 aching tingling radiating to left 3,4 and 5th finger tips. pt denies cp or sob, there is no diaphores, no n/v , no dizziness or light headedness This initial assessment/diagnostic orders/clinical plan/treatment(s) is/are subject to change based on patients health status, clinical progression and re- assessment by fellow clinical providers in the ED. Further treatment and workup at subsequent clinical providers discretion. Patient/guardian urged not to elope from the ED as their condition may be serious if not clinically assessed and managed. Initial orders include:
[2020-04-06 00:05] VITALS: BP 130/93
[2020-04-06] MEDS ORDERED: IBUPROFEN 800 MG TAB PO ONE (00:50)
--- NOTE | 2020-04-06 01:01 | Emergency Department Report ---
Upper Extremity - HPI Chief Complaint: Extremity Injury, Upper Stated Complaint: LEFT ARM WEAKNESS X 30MINS Upper Extremity: Left Forearm (left distal forearm tenderness ) Occurred When: 3 Days Mechanism: Unsure Severity: moderate Symptoms: Yes Pain with Movement, Yes Weakness, Yes Swelling, No Deformity, No Limited Range of Movement, No Numbness, No Bruising/Ecchymosis, No Laceration or Abrasion Other History: Pt is a 24 y/o aaf who presents for left forearm numbness x 30 mins, pt arrives via EMS , she denies injury fall or trauma, she confirms hx or left forearm carpal tunnel syndrome. pain at this time is 4/10 aching tingling radiating to left 3,4 and 5th finger tips. pt denies cp or sob, there is no diaphores, no n/v , no dizziness or light headedness ED Review of Systems ROS: Stated complaint: LEFT ARM WEAKNESS X 30MINS Other details as noted in HPI Constitutional: denies: chills, fever Eyes: denies: eye pain, eye discharge, vision change ENT: denies: ear pain, throat pain Respiratory: denies: cough, shortness of breath, wheezing Cardiovascular: denies: chest pain, palpitations Endocrine: no symptoms reported Gastrointestinal: denies: abdominal pain, nausea, diarrhea Genitourinary: denies: urgency, dysuria, discharge Musculoskeletal: myalgia Skin: denies: rash, lesions Neurological: denies: headache, weakness, paresthesias Psychiatric: denies: anxiety, depression Hematological/Lymphatic: denies: easy bleeding, easy bruising ED Past Medical Hx - Past Medical History Previous Medical History?: Yes Hx Hypertension: No Hx Liver Disease: No Hx Renal Disease: No Hx Headaches / Migraines: Yes (migraines) Hx Seizures: No Hx Asthma: Yes (last treated 04/2014, SEASON[facility]) Hx HIV: No Additional medical history: Carpal tennel - Surgical History Past Surgical History?: Yes Additional Surgical History: RIGHT OOPHERECTOMY/ECTOPIC PREG 2013 - Social History Smoking Status: Current Every Day Smoker Substance Use Type: Alcohol - Medications Home Medications: Home Medications Medication Instructions Recorded Confirmed Last Taken Type Clindamycin [Clindamycin CAP] 300 mg PO Q8H #30 cap 06/27/16 Unknown Rx Ibuprofen [Motrin] 600 mg PO Q8H PRN #15 tablet 06/27/16 Unknown Rx Ibuprofen [Motrin] 800 mg PO Q8HR PRN #25 tablet 10/03/16 Unknown Rx Neomycn/Bacitrc/Polymyx/Pramox 28 gm TP BID #1 oint...g. 10/03/16 Unknown Rx [Triple Antibioti-Pain Rlf Oint] Clindamycin [Clindamycin CAP] 300 mg PO Q8H 7 Days cap 11/22/17 Unknown Rx Ibuprofen [Motrin] 800 mg PO Q8HR PRN #20 tablet 11/22/17 Unknown Rx traMADoL [Ultram] 50 mg PO Q6HR PRN #10 tablet 11/22/17 Unknown Rx Famotidine [Pepcid] 20 mg PO DAILY #10 tablet 12/30/17 Unknown Rx Ondansetron [Zofran ODT TAB] 8 mg PO Q12HR #20 tab.rapdis 12/30/17 Unknown Rx Sulfamethoxazole/Trimethoprim 1 each PO BID #10 tablet 12/30/17 Unknown Rx [Bactrim DS TAB] Ibuprofen [Motrin] 600 mg PO Q8H PRN #20 tablet 04/06/18 Unknown Rx ALBUTEROL NEB's [Proventil 0.083% 2.5 mg IH TID PRN #30 neb 06/26/18 Unknown Rx NEBS] Albuterol Mdi (or & Nicu Only) 1 puff IH Q4-6H PRN #1 inha 06/26/18 Unknown Rx [ProAir HFA Inhaler] Montelukast [Singulair] 10 mg PO QPM #14 tablet 06/26/18 Unknown Rx predniSONE [Deltasone] 50 mg PO QDAY #5 tab 06/26/18 Unknown Rx Acetaminophen/Codeine [Tylenol #3] 1 tab PO Q6H PRN #15 tab 10/12/18 Unknown Rx Menthol/Camphor [[place] 1 applicatio TP QID PRN #1 tube 10/16/18 Unknown Rx Ointment] Naproxen [Naprosyn] 500 mg PO BID PRN #30 tablet 10/16/18 Unknown Rx Clindamycin [Clindamycin CAP] 300 mg PO Q6H #9 capsule 08/07/19 Unknown Rx metroNIDAZOLE [Flagyl TAB] 500 mg PO Q8HR #30 tablet 05/22/20 Unknown Rx traMADoL [Ultram] 50 mg PO Q6HR PRN #12 tablet 08/07/19 Unknown Rx Acyclovir [Acyclovir Ointment] 1 applicatio TP 5XD 7 Days #1 tube 11/11/19 Unknown Rx Acyclovir [Zovirax Tab] 400 mg PO Q8H 7 Days #21 tab 11/11/19 Unknown Rx Menthol/Camphor [[place] 1 applicatio TP QID PRN #1 tube 04/06/20 Unknown Rx Ointment] Naproxen 500 mg PO BID PRN #30 tablet 04/06/20 Unknown Rx Upper Extremity Exam - Exam General: Vital signs noted. No distress. Alert and acting appropriately. Head and Torso: No HEENT Abnormality, No Neck Tenderness, No Chest/Lungs Abnormality, No Abdominal Tenderness, No Back Tenderness Shoulder Exam: Yes Normal Range of Motion in Shoulder, No Shoulder Tenderness, No Clavicle Tenderness, No Shoulder Deformity, No AC Joint Tenderness Arm Exam: No Arm/Humerus Tenderness, No Arm Deformity Elbow: No Elbow Tenderness, No Normal Range of Motion in Elbow, No Elbow Deformity Forearm: Yes Forearm Tenderness, Yes Pain with Pronation, Yes Pain with Supination, No Forearm Deformity Wrist: Yes Normal ROM in Wrist, No Wrist Tenderness, No Wrist Deformity, No Snuffbox Tenderness, No Pain with Axial Thumb Compression Hand: Yes Normal ROM in Digit(s), No Hand Tenderness, No Hand Deformity, No Digit Tenderness, No Digit(s) Deformity, No Tendon Dysfunction CMS Exam: Yes Normal Distal Pulses, Yes Normal Capillary Refill, Yes Normal Distal Sensation, No Broken Skin ED Course Vital Signs 04/05/20 23:57 Temperature 98.3 F Pulse Rate 111 H Respiratory 18 Rate Blood Pressure 130/93 O2 Sat by Pulse 100 Oximetry ED Medical Decision Making - Medical Decision Making this is carpal region tenderness, distal pulse +2 , digital art director <3 sec, sales and service agent equal , rom unrestricted, plan: naproxen , [place], follow up with orthopedics in 2-3 days , pt dc'd to home in stable condition at this time. Critical care attestation.: If time is entered above; I have spent that time in minutes in the direct care of this critically ill patient, excluding procedure time. ED Disposition Clinical Impression: Strain of forearm, left Qualifiers: Encounter type: initial encounter Qualified Code(s): S56.912A - Strain of unspecified muscles, fascia and tendons at forearm level, left arm, initial encounter Disposition: TO HOME OR SELFCARE Is pt being admited?: No Does the pt Need Aspirin: No Condition: Stable Instructions: Elastic Bandage and RICE Therapy, Muscle Strain, Wrist and Forearm Exercises-SportsMed Prescriptions: Naproxen 500 mg PO BID PRN #30 tablet PRN Reason: Pain Menthol/Camphor [[place] Ointment] 1 applicatio TP QID PRN #1 tube PRN Reason: Pain Referrals: WILLIAN PORTER MD [Staff Physician] - 3-5 Days Forms: Work/School Release Form(ED) Time of Disposition: 01:13
== END 2020-04-06 03:30 | disposition home or self-care (01) ==
LOC: ED 23:51
DX: S56.912A Strain of unspecified muscles, fascia and tendons at forearm level, left arm, initial encounter (principal); G43.909 Migraine, unspecified, not intractable, without status migrainosus; J45.909 Unspecified asthma, uncomplicated; F17.200 Nicotine dependence, unspecified, uncomplicated; Z79.899 Other long term (current) drug therapy; Z88.0 Allergy status to penicillin; Z88.1 Allergy status to other antibiotic agents; X58.XXXA Exposure to other specified factors, initial encounter; Y93.89 Activity, other specified; Y92.89 Other specified places as the place of occurrence of the external cause; Y99.8 Other external cause status
CPT/HCPCS: 99283